=== PATIENT | female | born 1995 | race Caucasian/White ===

== ENCOUNTER 2016-12-05 06:00 | Inpatient (IN) | payer OTHER, MEDICAID ==
[~2016-12-05] VITALS: Ht 165.1 cm; Wt 108.4 kg
[2016-12-05] VITALS (31 sets, daily range): BP systolic 106–143; BP diastolic 53–87
[~2016-12-05 06:00] MED LIST: AMOX250S6 PO; CEPH500C PO; DEXAMETHASONE PO; FAMO10TA71 PO; HYDR-3812 PO; LORTAB ELIXIR PO; MECL12.579 PO; TETRACAINE LOLLIPOPS
[2016-12-05] MEDS ORDERED: D5 LR IV SOLUTION 1,000 ML IV SCH (06:21)
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
[2016-12-05] MEDS ORDERED: OXYTOCIN/NORMAL SALINE 500 ML IV ONE (06:47)
[2016-12-05 06:48] LABS: BASOPHILS % (AUTO) 0 % (0-10); EOSINOPHILS # (AUTO) 0.1 10^3/uL (0.0-0.3); EOSINOPHILS % (AUTO) 1 % (0-10); LYMPHOCYTES # (AUTO) 1.8 X 10^3 (1.0-4.0); LYMPHOCYTES % (AUTO) 24 % (12-44); MEAN CORPUSCULAR HEMOGLOBIN 28 PG (25-34); MEAN CORPUSCULAR HGB CONC 33 G/DL (32-36); MEAN CORPUSCULAR VOLUME 85 FL (80-99); MEAN PLATELET VOLUME 11.1 FL (7.4-10.4); MONOCYTES # (AUTO) 0.5 X 10^3 (0.0-1.0); MONOCYTES % (AUTO) 7 % (0-12); NEUTROPHILS % (AUTO) 67 % (42-75); PLATELET COUNT 210 10^3/uL (130-400); RED BLOOD COUNT 4.33 10^6/uL (4.35-5.85); RED CELL DISTRIBUTION WIDTH 13.7 % (10.0-14.5); WHITE BLOOD COUNT 7.4 10^3/uL (4.3-11.0)
--- NOTE | 2016-12-05 07:08 | History & Physical-OB ---
OB - Chief Complaint & HPI Date Date of Admission: Date of Admission: Dec 05, 2016 at 06:17 Chief Complaint/History OB-Reason for Admission/Chief: Induction of Labor Hx : 2 Hx Para: 1 Expected Date of Delivery: Dec 03, 2016 Admission Nurse Assessment Rev: Yes History of Labs GBS negative Allergies and Home Medications Allergies Coded Allergies: No Known Drug Allergies (Unverified , 09/12/13) Home Medications Hydrocodone/Acetaminophen 1 Each Tablet #20 1 TAB PO Q4H PRN PRN PAIN Prescribed by: LEONARDO HERRERA on 06/30/15 0744 OB - History Hx of Present Care: Yes Ultrasounds: Normal mid trimester US Obstetrical Complications: None Medical Complications: None Delivery History Hx Blood Disorders: No Adverse Rxn to Tranfusion: No Patient Past Medical History No chronic medical problems Social History/Family History Recent Infectious Disease Expo: No Immunizations Hepatitis A: Yes Tetanus Booster (TDap): Unknown OB - Admission Exam Physical Exam HEENT: Moist Membranes Heart: Rhythm Normal Lungs: Clear Abdomen: Gravid Extremities: Normal Reflexes: Normal Cervical Dilatation: 2cm Effacement: 50% Station: -2 Membranes: Intact Heart Rate: 140's Accelerations: Accelerations Present Short Term Variability: Present Assisted Variability: Average (6-25) Alvarez Scoring Tool (Modified) Dilation (cm): 1-2cm (1) Effacement (%): 31-51% (1) Descent/Station: -2 (1) Cervix Consistency: Medium(1) Cervix Position: Middle/Mid-Position (1) Add 1 point for: Each previous vaginal delivery (1) Alvarez Score: 6 Labs Laboratory Tests Test 12/05/16 06:30 Range/Units Basophils # (Auto) 0.0 0.0-0.1 10^3/uL Basophils (%) (Auto) 0 0-10 % Eosinophils # (Auto) 0.1 0.0-0.3 10^3/uL Eosinophils (%) (Auto) 1 0-10 % Hematocrit 37 35-52 % Hemoglobin 12.2 11.5-16.0 G/DL Lymphocytes # (Auto) 1.8 1.0-4.0 X 10^3 Lymphocytes (%) (Auto) 24 12-44 % Mean Corpuscular Hemoglobin 28 25-34 PG Mean Corpuscular Hemoglobin Concent 33 32-36 G/DL Mean Corpuscular Volume 85 80-99 FL Mean Platelet Volume 11.1 H 7.4-10.4 FL Monocytes # (Auto) 0.5 0.0-1.0 X 10^3 Monocytes (%) (Auto) 7 0-12 % Neutrophils # (Auto) 5.0 1.8-7.8 X 10^3 Neutrophils (%) (Auto) 67 42-75 % Platelet Count 210 130-400 10^3/uL Red Blood Count 4.33 L 4.35-5.85 10^6/uL Red Cell Distribution Width 13.7 10.0-14.5 % White Blood Count 7.4 4.3-11.0 10^3/uL OB - Assessment/Plan/Diagnosis Assessment Assessment: induction of labor (at 39w2d) Plan Plan: Induction Induction Method: AROM Other Plan No epidural desired at this time. Stadol for pain control. Pitocin augmentation if necessary LEONARDO HERRERA MD Dec 05, 2016 07:08
[2016-12-05] MEDS ORDERED: OXYTOCIN/NORMAL SALINE 500 ML IV SCH ×2 (07:26→12:56)
[2016-12-05] MEDS ORDERED: BUTORPHANOL INJ 2 MG/ML (STADOL) VIAL IV PRN (07:30)
[2016-12-05] MEDS ORDERED: MEPIVACAINE (CARBOCAINE) 2% 50 ML VIAL ONE (11:19)
--- NOTE | 2016-12-05 12:56 | OB Labor & Delivery Record ---
L&D History Date of Service Date of Service: Dec 05, 2016 History Expected Date of Delivery: Dec 10, 2016 Gestational Age in Weeks: 39 Hx : 2 Hx Para: 1 Complications Events: Routine care Operative Indications (Cesarea: N/A-Vaginal Delivery Intrapartal Events: None L&D Stage1 Stage One Onset of Labor - Date: Dec 05, 2016 Onset of Labor - Time: 07:11 Monitors and Tracing Monitor Mode: Internal Heart Rate: 135 Monitor Accelerations: Uniform Monitor Decelerations: Variable Automotive Service Professional Variability: Average (6-10) Short Term Variability: Present Presentation: Vertex Vital Signs VS - Last 72 Hours, by Label 12/05/16 12/05/16 12/05/16 12/05/16 06:44 07:15 07:30 07:45 Temp 98.9 Pulse 94 94 89 90 Resp 18 18 20 20 B/P 119/72 115/74 110/70 106/67 O2 Delivery Room Air Room Air Room Air Room Air 12/05/16 12/05/16 12/05/16 12/05/16 08:00 08:15 08:30 08:45 Pulse 90 83 85 87 Resp 20 20 20 20 B/P 118/56 116/65 106/56 113/70 O2 Delivery Room Air Room Air Room Air Room Air 12/05/16 12/05/16 12/05/16 12/05/16 09:00 09:15 09:30 09:45 Pulse 88 90 88 88 Resp 20 18 20 20 B/P 109/56 125/61 106/53 122/60 O2 Delivery Room Air Room Air Room Air Room Air 12/05/16 12/05/16 12/05/16 12/05/16 10:00 10:15 10:30 10:45 Pulse 92 94 80 76 Resp 20 20 18 18 B/P 121/56 133/70 118/60 114/59 O2 Delivery Room Air Room Air Room Air Room Air 12/05/16 12/05/16 11:00 11:15 Pulse 83 83 Resp 18 18 B/P 121/67 121/67 O2 Delivery Room Air Room Air Signs of Distress by FHT Signs of Distress no Rupture of Membranes Spontaneous Ruture of Membrane: No Amniotic Membrane Rupture Time: 0711 Amniotic Membrane Fluid Desc.: Clear L&D Stage2 Stage Two Stage II Date: Dec 05, 2016 Stage II Time: 12:31 Monitors and Tracing Monitor Mode: Internal Heart Rate: 135 Monitor Accelerations: Uniform Monitor Decelerations: Variable Usp Variability: Average (6-10) Short Term Variability: Present Position: Left Occiput Anterior Presentation: Vertex Signs of Distress by FHT Signs of Distress no Cord Descript/Complications Cord Vessel Description: 3 Vessels Delivery Type Delivery Method: Spontaneous Vaginal Anterior Shoulder: Left Episiotomy/Perineal Laceration Laceraction(s)/Extensions: Yes Episiotomy Description: Vaginal Extension/lac (L introital region) Sutures Used: Vicryl (3-0) Shoulder Dystocia Note Shoulder Dystocia Start Time of Delivery of HEAD: 12:31 HOB in lowered position: Yes Time of delivery of BODY: 12:33 Positional Maneuvers Vic Delivery Approach Delivery of posterior arm: Left Condition of Delivery 1 minute Comment: 6 5 minute Comment: 8 Condition of Infant Condition of Infant: Living Exam: No Observed Abnormalities Resuscitation Resuscitation: N/A - Spontaneous Resp L&D Stage3 Stage Three Stage III Date: Dec 05, 2016 Stage III Time: 12:34 Pictocin Pitocin Administration mu/min: 14 Pitocin ml/hr: 14 Placenta Delivery Placenta Delivery: Spontaneous Delivery Summary Summary Vaginal blood loss >500ml: No 300 Condition of Delivery Examined: Cervix Examined Post Hemorrhage: LEONARDO Brooks MD Dec 05, 2016 12:55
[2016-12-05] MEDS ORDERED: WITCH HAZEL(TUCKS) 40 EA JAR TOP PRN (13:00)
[2016-12-05] MEDS ORDERED: BENZOCAINE/MENTHOL (DERMOPLAST) 56 ML CAN TP PRN (13:00)
[2016-12-05] MEDS ORDERED: TETANUS,DIPTH,PERTUSS P/F (BOOSTRIX) 0.5 ML VIAL IM ONE (13:00)
[2016-12-05] MEDS ORDERED: HYDROcodone/APAP 5 MG/325 MG (LORTAB) TAB PO PRN (13:00)
[2016-12-05] MEDS ORDERED: MEASLES,MUMPS,RUBELLA 1 EA INJ SQ ONE (13:00)
[2016-12-05] MEDS ORDERED: CATHETER FLUSH 10 ML SYR IV SCH ×2 (14:00)
[2016-12-05] MEDS: IBUPROFEN 600 MG (MOTRIN) TAB PO SCH ×2 (14:52→20:36)
[2016-12-06 02:45] VITALS: BP 106/70
[2016-12-06] MEDS: IBUPROFEN 600 MG (MOTRIN) TAB PO SCH ×3 (02:49→16:00)
[2016-12-06 06:11] LABS: BASOPHILS % (AUTO) 0 % (0-10); EOSINOPHILS # (AUTO) 0.2 10^3/uL (0.0-0.3); EOSINOPHILS % (AUTO) 2 % (0-10); LYMPHOCYTES # (AUTO) 2.1 X 10^3 (1.0-4.0); LYMPHOCYTES % (AUTO) 21 % (12-44); MEAN CORPUSCULAR HEMOGLOBIN 28 PG (25-34); MEAN CORPUSCULAR HGB CONC 33 G/DL (32-36); MEAN CORPUSCULAR VOLUME 86 FL (80-99); MEAN PLATELET VOLUME 10.8 FL (7.4-10.4); MONOCYTES # (AUTO) 0.7 X 10^3 (0.0-1.0); MONOCYTES % (AUTO) 7 % (0-12); NEUTROPHILS # (AUTO) 7.1 X 10^3 (1.8-7.8); NEUTROPHILS % (AUTO) 71 % (42-75); PLATELET COUNT 201 10^3/uL (130-400); RED BLOOD COUNT 4.02 10^6/uL (4.35-5.85); RED CELL DISTRIBUTION WIDTH 13.7 % (10.0-14.5); WHITE BLOOD COUNT 10.1 10^3/uL (4.3-11.0)
[2016-12-06] MEDS ORDERED: PRENATAL VITAMIN 1 EA TAB PO SCH (07:00)
--- NOTE | 2016-12-06 07:34 | Discharge Summary ---
Diagnosis/Chief Complaint Date of Admission Dec 05, 2016 at 06:17 Date of Discharge Dec 06, 2016 Discharge Date: Dec 06, 2016 Admission Diagnosis Admission Diagnosis 1. IUP at 39w2d Discharge Diagnosis 1. IUP at 39w2d Reason Hospital Visit 21 yo G2 now T2 who initially presented for induction of labor at 39w3d in the am of 12/05/2016. EDC was noted to be 12/03/2016. Discharge Summary-OBS Procedures 1. 2. Repair of L sided vaginal introital opening repair Discharge Physical Examination Allergies: Coded Allergies: No Known Drug Allergies (Unverified , 09/12/13) Vitals & I&Os Vital Signs Date Time Temp Pulse Resp B/P Pulse Ox O2 Delivery O2 Flow Rate FiO2 12/06/16 02:45 98.3 79 18 106/70 97 Room Air Hospital Course Patient underwent amniotomy in the morning of December 05, 2016. Fluid was noted to be clear at that time. She required low-dose Pitocin augmentation to achieve adequate contraction pattern. She ultimately underwent spontaneous vaginal delivery with her left-sided vaginal introital opening care. This was repaired without difficulty. Blood loss was minimal. Her initial hemoglobin was noted to be 12.2. Following delivery patient underwent routine care orders. She had no complications during the remainder of her hospital stay. She was ambulatory. Patient did not develop any shortness of breath or leg pain. She was felt ready for dismissal on December 06, 2016. Her hemoglobin was stable at 11.3. All questions answered and she was given instructions for follow-up in 6 weeks. Pending Labs Laboratory Tests 12/06/16 06:01: Basophils # (Auto) 0.0, Basophils (%) (Auto) 0, Eosinophils # (Auto) 0.2, Eosinophils (%) (Auto) 2, Hematocrit 35, Hemoglobin 11.3, Lymphocytes # (Auto) 2.1, Lymphocytes (%) (Auto) 21, Mean Corpuscular Hemoglobin 28, Mean Corpuscular Hemoglobin Concent 33, Mean Corpuscular Volume 86, Mean Platelet Volume 10.8, Monocytes # (Auto) 0.7, Monocytes (%) (Auto) 7, Neutrophils # (Auto ) 7.1, Neutrophils (%) (Auto) 71, Platelet Count 201, Red Blood Count 4.02, Red Cell Distribution Width 13.7, White Blood Count 10.1 Discharge Instructions to patient/family Please see electonic discharge instructions given to patient. Discharge Medications Reviewed and agree with Discharge Medication list on patient's Discharge Instruction sheet Clinical Quality Measures DVT/VTE Risk/Contraindication: Risk Factor Score Per Nursin RFS Level Per Nursing on Admit: 1=Low/No VTE PPX LEONARDO HERRERA MD Dec 06, 2016 07:34
[2016-12-06] MEDS ORDERED: IBUP-1773 PO (07:43)
[2016-12-06] MEDS ORDERED: HYDR-3812 PO (07:43)
--- NOTE | 2016-12-06 07:45 | Discharge Inst-Women's Service ---
Discharge Inst-Women's Serv Depart Medication/Instructions New, Converted or Re-Newed RX: RX on Chart Consults/Follow Up Additional Follow Up: Yes ([address] Saucedo) Activity Driving Instructions: You May Drive Nothing Inside Vagina: No [place] (for 6 weeks) Diet Discharge Diet: No Restrictions Return to The Hospital For: as below Symptoms to Report to : Swelling Increased, Bleeding Excessive, Pain Increased, Fever Over 101 Degrees F, Vaginal Discharge LEONARDO Puga MD Dec 06, 2016 07:45
[2016-12-06 08:24] VITALS: BP 130/70
[2016-12-06] MEDS ORDERED: FLU TRIvalent (5 YOA+) 2016-17 (AFLURIA) 0.5 ML IM ONE (10:15)
[2016-12-06 12:15] VITALS: BP 126/74
[2016-12-06] MEDS ORDERED: TETANUS,DIPTH,PERTUSS P/F (BOOSTRIX) 0.5 ML VIAL IM ONE (15:42)
== END 2016-12-06 16:40 | disposition home or self-care (01) | DRG 775 ==
LOC: LDRP 06:17
PROVIDERS: ADMIT Family Medicine; ATTEND Family Medicine
PROC: 10E0XZZ Delivery of Products of Conception, External Approach (ICD-10-PCS; principal; 2016-12-05)
PROC: 0HQ9XZZ Repair Perineum Skin, External Approach (ICD-10-PCS; 2016-12-05)
DX: O70.0 First degree perineal laceration during delivery (principal); Z3A.39 39 weeks gestation of pregnancy; Z37.0 Single live birth; Z23 Encounter for immunization
CPT/HCPCS: 36415; 85025; 86850; 86900; 86901; 90715

== ENCOUNTER → 2017-01-16 | Outpatient (CLI) | payer OTHER, MEDICAID ==
[~2017-01-16] MED LIST changes: +IBUP-1773 PO
--- NOTE | 2017-01-16 13:51 | Diagnostic Imaging Report ---
INDICATION: Right-sided pain. FINDINGS: There is L5-S1 spondylosis with endplate sclerosis and disc space narrowing. In the lateral radiograph, there is suspicion for L5 spondylolysis defects but no listhesis. The vertebral body stature is normal. No acute or suspicious endplate irregularity. IMPRESSION: Normal alignment but suspicion for L5 spondylolysis is noted. This could be confirmed or refuted with oblique views. Normal alignment. Dictated by: Dictated on workstation # [id number]
== END ==
LOC: RAD 11:23
PROVIDERS: ATTEND Family Medicine
DX: M54.5 Low back pain (principal)
CPT/HCPCS: 72100

== ENCOUNTER 2017-03-07 10:15 | Outpatient (RCR) | payer MEDICAID, OTHER | END 2017-03-15 09:21 | disposition home or self-care (01) | PROVIDERS: ATTEND Family Medicine | DX: M54.5 Low back pain (principal) ==

== ENCOUNTER 2017-04-09 17:57 | Emergency (ER) | payer SELFPAY ==
[~2017-04-09] VITALS: Ht 165.1 cm; Wt 96.2 kg
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
[2017-04-09] MEDS ORDERED: ORPHENADRINE 60 MG/2 ML (NORFLEX) AMP IM ONE (19:30)
[2017-04-09] MEDS ORDERED: KETOROLAC 60 MG/2 ML VIAL IM ONE (19:30)
--- NOTE | 2017-04-09 19:45 | Diagnostic Imaging Report ---
PROCEDURE: CT head without contrast. TECHNIQUE: Multiple contiguous axial images were obtained through the brain without the use of intravenous contrast. INDICATION: Fluid leaking from nose. FINDINGS: The ventricles and sulci are within normal limits. There is no hydrocephalus or cerebral edema. There is no midline shift or mass effect. There is no intracranial mass, hemorrhage, or extra-axial fluid collection. The visualized paranasal sinuses and mastoid air cells are clear. There are no regional areas of decreased attenuation appreciated to suggest an acute CVA. IMPRESSION: No acute intracranial abnormality. Dictated by: Dictated on workstation # [id number]
[2017-04-09 20:19] VITALS: BP 125/84
== END 2017-04-09 20:19 | disposition home or self-care (01) ==
LOC: EDUNIT# 17:57 → ER 18:00
DX: R51 Headache (principal); K21.9 Gastro-esophageal reflux disease without esophagitis; F32.9 Major depressive disorder, single episode, unspecified; F17.210 Nicotine dependence, cigarettes, uncomplicated; Z82.49 Family history of ischemic heart disease and other diseases of the circulatory system
CPT/HCPCS: 70450; 96372; 99284

== ENCOUNTER → 2019-03-14 | Outpatient (CLI) | payer MEDICAID ==
[~2019-03-14] MED LIST changes: +ACHD5005 PO; -HYDR-3812 PO
--- NOTE | 2019-03-14 20:08 | Diagnostic Imaging Report ---
INDICATION: Pelvic pain. TECHNIQUE: Pelvic sonography performed in the routine fashion with transabdominal and transvaginal views. FINDINGS: The uterus measures 8.1 x 4.3 x 3.7 cm and appears unremarkable. The endometrium measures 6 mm. There is no uterine mass. The left ovary could not be visualized. The right ovary measures 3.5 x 3.5 x 2.2 cm and is only seen on the transabdominal view. There is no free fluid. There is color flow to the right ovary demonstrated. IMPRESSION: Normal-appearing uterus and right ovary. Left ovary was not visualized. There is no free fluid. Dictated by: Dictated on workstation # [id number]
== END ==
LOC: RAD 12:36
PROVIDERS: ATTEND Family Medicine
DX: N91.2 Amenorrhea, unspecified (principal); R10.2 Pelvic and perineal pain
CPT/HCPCS: 76830; 76856

== ENCOUNTER → 2019-06-12 | Outpatient (CLI) | payer MEDICAID ==
--- NOTE | 2019-06-12 15:53 | Diagnostic Imaging Report ---
PROCEDURE: US OB SINGLE FETUS <14 WKS. TECHNIQUE: Multiple real-time grayscale images were obtained over the gravid uterus in various projections. INDICATION: dates. FINDINGS: There is an intrauterine gestational sac containing a pole consistent with approximately 7 weeks and 3 days gestation. heart rate was recorded at 127 beats per minute. No perigestational sac hemorrhage is seen. Gestational sac shape is within normal limits. Left ovary was not visualized. Right ovary contains a 2.1 cm cyst. There is no free fluid identified. IMPRESSION: Single live IUP 7 weeks 3 days gestational age with estimated date of confinement sonographically of 01/26/2020. Dictated by: Dictated on workstation # [id number]
== END ==
LOC: RAD 14:56
PROVIDERS: ATTEND Family Medicine
DX: Z34.91 Encounter for supervision of normal pregnancy, unspecified, first trimester (principal); Z3A.01 Less than 8 weeks gestation of pregnancy
CPT/HCPCS: 76801

== ENCOUNTER → 2019-09-04 | Outpatient (CLI) | payer MEDICAID ==
--- NOTE | 2019-09-04 13:16 | Diagnostic Imaging Report ---
INDICATION: Anatomic survey. TECHNIQUE: Multiple real-time grayscale images were obtained over the gravid uterus. COMPARISON: 06/12/2019. FINDINGS: A single live intrauterine gestation is visualized measuring 20 weeks 3 days with an estimated due date of 01/19/2020. This is within range with the clinical dates. The estimated weight is 351 g, consistent with the 43rd percentile. The heart rate is 140 BPM. The amniotic fluid index was not measured; however visually this appears within normal limits. The placenta is fundal and not low lying. The bladder, stomach, ventricles, and spine are visualized and have a normal appearance. The kidneys, four-chamber heart, three-vessel cord, and cord insertion are not well seen due to position and patient body habitus. No obvious anatomic abnormalities are visualized. Included views of the adnexa demonstrate no acute abnormalities. Biometrical measurements are as follows: Biparietal 4.73 cm, age 20 weeks 3 days. Head circumference 17.72 cm, age 20 weeks 2 days. Abdominal circumference 15.32 cm, age 20 weeks 4 days. Femur length 3.29 cm, age 20 weeks 2 days. Sonographic estimate age: 20 weeks 3 days. Sonographic estimated date of delivery: 01/19/2020. Estimated Weight: 351 gm (+/- 51 gm). LMP percentile: 92%. heart rate: 140 beats per minute. number: 1 of 1. IMPRESSION: 1. Single live intrauterine gestation measuring 20 weeks 3 days with an estimated due date of 01/19/2020. This is within range with the clinical dates. 2. The kidneys, four-chamber heart, three-vessel cord, and cord insertion are not well seen due to position and patient body habitus. Consider follow-up ultrasound as indicated to attempt reevaluation. The bladder, stomach, ventricles, and spine are visualized and have a normal appearance. No obvious abnormalities are identified. Dictated by: Dictated on workstation # [id number]
== END ==
LOC: RAD 10:33
PROVIDERS: ATTEND Family Medicine
DX: Z34.92 Encounter for supervision of normal pregnancy, unspecified, second trimester (principal); Z3A.20 20 weeks gestation of pregnancy
CPT/HCPCS: 76805

== ENCOUNTER → 2019-10-30 | Outpatient (CLI) | payer MEDICAID ==
--- NOTE | 2019-10-30 14:54 | Diagnostic Imaging Report ---
INDICATION: Follow-up survey. TECHNIQUE: Multiple real-time grayscale images were obtained over the gravid uterus. COMPARISON: 09/04/2019. FINDINGS: There is a single live fetus in a cephalic presentation. heart rate was recorded at 149 bpm. Placenta is anterior. The amniotic fluid index is 17.5 cm. There appears to be some mild dilatation of the renal pelves bilaterally, measuring up to 9 mm on the right and 7 mm on the left. Bladder and stomach are unremarkable. There is a four-chamber heart. There is a three-vessel cord with normal insertion. IMPRESSION: Single live fetus. There is renal pelvic dilatation bilaterally, slightly greater on the right. Continued follow-up would be recommended. Dictated by: Dictated on workstation # [id number]
== END ==
LOC: RAD 10:34
PROVIDERS: ATTEND Family Medicine
DX: Z36.9 Encounter for antenatal screening, unspecified (principal)
CPT/HCPCS: 76816

== ENCOUNTER 2020-01-13 05:04 | Inpatient (IN) | payer MEDICAID ==
[~2020-01-13] VITALS: Ht 165.1 cm; Wt 113.0 kg
[2020-01-13] VITALS (15 sets, daily range): BP systolic 112–135; BP diastolic 57–82
--- NOTE | 2020-01-13 05:07 | NUR ---
MEKHI CARPENTER presented to unit via W/C from home/ED, accompanied by SO, with c/o LABOR. MEKHI CARPENTER weighed, gowned, voided, and to bed. EFHM and TOCO applied, VS taken. MEKHI CARPENTER oriented to bed controls, call light, TV, heat, and A/C controls.
[2020-01-13] MEDS ORDERED: D5 LR IV SOLUTION 1,000 ML IV ONE (05:10)
[2020-01-13] MEDS ORDERED: LORA10TA7 PO (05:11)
[2020-01-13] MEDS ORDERED: PROM25TA14 PO (05:11)
[2020-01-13] MEDS ORDERED: HYDR-700 PO (05:11)
[2020-01-13] MEDS ORDERED: AMPICILLIN FOR IV USE 2,000 MG VIAL ONE (05:17)
[2020-01-13] MEDS ORDERED: WATER (STERILE) FOR INJECTION 20 ML ONE (05:17)
[2020-01-13] MEDS ORDERED: D5 LR IV SOLUTION 1,000 ML IV SCH (05:21)
[2020-01-13] MEDS ORDERED: AMPICILLIN FOR IV USE 2,000 MG in WATER (STERILE) FOR INJECTION 14.8 ML IV SCH (05:21)
[2020-01-13] MEDS ORDERED: OXYTOCIN PRE-MIX DRIP 500 ML IV ONE (05:28)
[2020-01-13] MEDS ORDERED: MEPIVACAINE (CARBOCAINE) 2% 50 ML VIAL ONE (05:28)
[2020-01-13 05:40] LABS: BASOPHILS % (AUTO) 0 % (0-10); EOSINOPHILS # (AUTO) 0.1 10^3/uL (0.0-0.3); EOSINOPHILS % (AUTO) 1 % (0-10); HEMATOCRIT 37 % (35-52); HEMOGLOBIN 12.2 G/DL (11.5-16.0); LYMPHOCYTES # (AUTO) 1.6 X 10^3 (1.0-4.0); LYMPHOCYTES % (AUTO) 17 % (12-44); MEAN CORPUSCULAR HEMOGLOBIN 29 PG (25-34); MEAN CORPUSCULAR HGB CONC 33 G/DL (32-36); MEAN CORPUSCULAR VOLUME 88 FL (80-99); MEAN PLATELET VOLUME 11.8 FL (7.4-10.4); MONOCYTES # (AUTO) 0.5 X 10^3 (0.0-1.0); MONOCYTES % (AUTO) 5 % (0-12); NEUTROPHILS # (AUTO) 7.3 X 10^3 (1.8-7.8); NEUTROPHILS % (AUTO) 77 % (42-75); PLATELET COUNT 210 10^3/uL (130-400); RED CELL DISTRIBUTION WIDTH 13.4 % (10.0-14.5); WHITE BLOOD COUNT 9.5 10^3/uL (4.3-11.0)
[2020-01-13] MEDS ORDERED: CATHETER FLUSH 10 ML SYR IV SCH ×2 (06:00→14:00)
--- NOTE | 2020-01-13 06:00 | NUR ---
bed placed back together. pericare completed. ff 1 below umbilicus, light rubra noted.
--- NOTE | 2020-01-13 06:12 | History & Physical-OB ---
OB - Chief Complaint & HPI Date/Time Date of Admission: Date of Admission: Jan 13, 2020 at 05:11 Date seen by a Provider: Jan 13, 2020 Time Seen by a Provider: 05:10 Chief Complaint/History OB-Reason for Admission/Chief: Onset of Labor Hx : 3 Hx Para: 2 Expected Date of Delivery: Jan 26, 2020 Gestational Age in Weeks: 38 Gestational Age in Days: 1 Admission Nurse Assessment Rev: Yes History of Labs GBS positive Allergies and Home Medications Allergies Coded Allergies: No Known Drug Allergies (Unverified , 09/12/13) Home Medications Promethazine HCl 25 Mg Tablet, 25 MG PO Q6H PRN for NAUSEA/VOMITING, (Reported) Patient Home Medication List Home Medication List Reviewed: Yes OB - History Hx of Present Care: Yes Ultrasounds: Normal mid trimester US Obstetrical Complications: None Medical Complications: None Delivery History Hx Blood Disorders: No Adverse Rxn to Tranfusion: No Patient Past Medical History No chronic medical problems Social History/Family History Recent Infectious Disease Expo: No Alcohol Use: Denies Use Recreational Drug Use: No Immunizations Hepatitis A: No Hepatitis B: No Tetanus Booster (TDap): Unknown OB - Admission Exam Physical Exam HEENT: Moist Membranes Heart: Rhythm Normal Lungs: Clear Abdomen: Gravid Extremities: Normal Cervical Dilatation: 8cm Effacement: 100% Station: -1 Membranes: Intact Heart Rate: 140's Accelerations: Accelerations Present Short Term Variability: Present Longterm Variability: Average (6-25) Contractions on Admission: < 5 Minutes Apart Intensity: Moderate Labs Laboratory Tests Test 01/13/20 05:30 Range/Units OB - Assessment/Plan/Diagnosis Assessment Assessment: active labor, group B positive strep Admission Dx 1. IUP at 38w1d Admission Status: Inpatient Order (span 2 midnights) Reason for Inpatient Admission: L&D Plan Plan: Other (delivery vaginally) Other Plan -ampicillin dose -delivery vaginally LEONARDO HERRERA MD Jan 13, 2020 06:12
[2020-01-13] MEDS ORDERED: OXYTOCIN PRE-MIX DRIP 500 ML IV SCH (06:15)
[2020-01-13] MEDS ORDERED: BENZOCAINE/MENTHOL (DERMOPLAST) 60 ML CAN TP PRN (06:15)
[2020-01-13] MEDS ORDERED: TETANUS,DIPTH,PERTUSS P/F (BOOSTRIX) 0.5 ML VIAL IM ONE (06:15)
[2020-01-13] MEDS ORDERED: WITCH HAZEL(TUCKS) 40 EA JAR TOP PRN (06:15)
[2020-01-13] MEDS ORDERED: MEASLES,MUMPS,RUBELLA 1 EA INJ SQ ONE (06:15)
--- NOTE | 2020-01-13 06:15 | NUR ---
ff 1 below umbilicus, light rubra noted.
--- NOTE | 2020-01-13 06:15 | OB Labor & Delivery Record ---
L&D History Date of Service Date of Service: Jan 13, 2020 History Expected Date of Delivery: Jan 26, 2020 Gestational Age in Weeks: 38 Hx : 3 Hx Para: 3 Complications Events: Routine care Operative Indications (Cesarea: N/A-Vaginal Delivery Intrapartal Events: None L&D Stage1 Stage One Onset of Labor - Date: Jan 12, 2020 Onset of Labor - Time: 22:00 Monitors and Tracing Monitor Mode: External Monitor Accelerations: Uniform Monitor Decelerations: None Station: -1 Nursing Home Variability: Average (6-10) Short Term Variability: Present Presentation: Vertex Signs of Distress by FHT Signs of Distress no Rupture of Membranes Spontaneous Ruture of Membrane: Yes Amniotic Membrane Rupture Time: 05:44 Amniotic Membrane Fluid Desc.: Clear L&D Stage2 Stage Two Stage II Date: Jan 13, 2020 Stage II Time: 05:46 Monitors and Tracing Monitor Mode: External Monitor Accelerations: Uniform Monitor Decelerations: Early Math Tutor Variability: Average (6-10) Short Term Variability: Present Position: Left Occiput Anterior Presentation: Vertex Signs of Distress by FHT Signs of Distress no Cord Descript/Complications Cord Vessel Description: 3 Vessels Delivery Type Infant Delivery Method: Spontaneous Vaginal Anterior Shoulder: Left Episiotomy/Perineal Laceration Laceraction(s)/Extensions: No Condition of Delivery 1 minute Comment: 9 5 minute Comment: 9 Condition of Condition of : Living Exam: No Observed Abnormalities Resuscitation Resuscitation: N/A - Spontaneous Resp L&D Stage3 Stage Three Stage III Date: Jan 13, 2020 Stage III Time: 05:50 Pictocin Pitocin ml/hr: 125 Placenta Delivery Placenta Delivery: Spontaneous Delivery Summary Summary Estimated blood loss (mL): 250 Condition of Delivery Examined: Cervix Examined Post Hemorrhage: No Intervention Required none LEONARDO HERRERA MD Jan 13, 2020 06:15
--- NOTE | 2020-01-13 06:30 | NUR ---
ff 1 below umbilicus. light rubra noted. holding baby. water provided. s/o at bedside. denies any needs at this time.
--- NOTE | 2020-01-13 06:45 | NUR ---
ff 1 below umbilicus. light rubra noted
[2020-01-13] MEDS ORDERED: IBUPROFEN 600 MG (MOTRIN) TAB PO ONE (07:40)
[2020-01-13] MEDS: IBUPROFEN 600 MG (MOTRIN) TAB PO SCH ×3 (08:20→20:30)
--- NOTE | 2020-01-13 08:30 | NUR ---
FFU/2, light rubra lochia noted, no clots expressed. Pericare performed, fresh pad and panties on. Pt assisted to standing position at side of bed, assisted to put shoes on. Pt ambulates to room 312 accompanied by RN, S.o., infant and all personal belongings. Pt oriented to room and call light. packet explained. Pt to bathroom +void. Pt denies needs or concerns at this time.
[2020-01-13] MEDS ORDERED: AMPICILLIN FOR IV USE 1,000 MG in WATER (STERILE) FOR INJECTION 7.4 ML IV SCH (09:30)
[2020-01-13] MEDS: ACETAMINOPHEN 500 MG TAB (TYLENOL) PO SCH ×2 (11:43→20:30)
--- NOTE | 2020-01-13 15:07 | NUR ---
report received from KATHY Mcneil. care assumed of pt.
--- NOTE | 2020-01-13 17:00 | NUR ---
infant remains out in room. no c/o's voiced @ time.
--- NOTE | 2020-01-13 19:05 | NUR ---
report given to KATHY Awad.
[2020-01-13] MEDS: DOCUSATE SODIUM 100 MG (COLACE) CAP PO SCH (20:30)
--- NOTE | 2020-01-13 21:09 | NUR ---
pt resting in bed. family at bedside. pt denies any needs at this time. will continue to monitor
[2020-01-14] MEDS: IBUPROFEN 600 MG (MOTRIN) TAB PO SCH ×2 (02:00→09:09)
[2020-01-14] MEDS: ACETAMINOPHEN 500 MG TAB (TYLENOL) PO SCH ×2 (02:00→09:10)
[2020-01-14 03:37] VITALS: BP 107/71
[2020-01-14 05:32] LABS: BASOPHILS % (AUTO) 0 % (0-10); EOSINOPHILS # (AUTO) 0.2 10^3/uL (0.0-0.3); EOSINOPHILS % (AUTO) 3 % (0-10); HEMATOCRIT 30 % (35-52); HEMOGLOBIN 9.7 G/DL (11.5-16.0); LYMPHOCYTES # (AUTO) 2.5 X 10^3 (1.0-4.0); LYMPHOCYTES % (AUTO) 33 % (12-44); MEAN CORPUSCULAR HEMOGLOBIN 29 PG (25-34); MEAN CORPUSCULAR HGB CONC 32 G/DL (32-36); MEAN CORPUSCULAR VOLUME 90 FL (80-99); MEAN PLATELET VOLUME 11.1 FL (7.4-10.4); MONOCYTES # (AUTO) 0.5 X 10^3 (0.0-1.0); MONOCYTES % (AUTO) 7 % (0-12); NEUTROPHILS # (AUTO) 4.2 X 10^3 (1.8-7.8); NEUTROPHILS % (AUTO) 57 % (42-75); PLATELET COUNT 162 10^3/uL (130-400); RED CELL DISTRIBUTION WIDTH 13.8 % (10.0-14.5); WHITE BLOOD COUNT 7.4 10^3/uL (4.3-11.0)
--- NOTE | 2020-01-14 07:14 | Discharge Summary ---
Diagnosis/Chief Complaint Date of Admission Jan 13, 2020 at 05:11 Date of Discharge January 14, 2020 Discharge Date: Jan 14, 2020 Discharge Time: 09:00 Admission Diagnosis Admission Diagnosis 1. Intrauterine at 38 weeks gestation 2. Maternal GBS positive Discharge Diagnosis 1. Intrauterine at 38 weeks gestation 2. Maternal GBS positive Reason Hospital Visit 24-year-old 3 now term 3 who initially presented to labor and delivery during the roper operator of January 13, 2020 in active labor. She was noted to be at 38 weeks gestation with essentially unremarkable care. Her EDC was noted to be January 26, 2020. GBS status at 36 weeks vaginal and perineal culture was positive Discharge Summary-OBS Procedures 1. Spontaneous vaginal delivery Discharge Physical Examination Allergies: Coded Allergies: No Known Drug Allergies (Unverified , 09/12/13) Vitals & I&Os Vital Signs Date Time Temp Pulse Resp B/P (MAP) Pulse Ox O2 Delivery O2 Flow Rate FiO2 01/14/20 03:37 36.8 79 18 107/71 (83) 98 Room Air General Appearance: No Acute Distress Respiratory: Clear to Auscultation Cardiovascular: Regular Rate Abdominal: Normal Bowel Sounds, Soft (With uterus firm) Skin: No Rashes Hospital Course Was the Problem List Reviewed?: Yes Patient was admitted during the morning of January 13, 2020 in active labor. She presented 7-8 cm dilated. Her membranes were intact at that time. She had received one dose of ampicillin IV due to the GBS status. Upon arrival to Hospital she was dilated to completion. Membranes were noted be intact but with her first push membranes spontaneously ruptured. She delivered a term large for gestational age viable male in the morning of January 13, 2020. There was no perineal lacerations her care. See labor and delivery for full details. Following delivery patient underwent routine care orders. She had no complications during the remainder of hospital stay. She was noted to be ambulatory without any shortness of breath or leg pain. She tolerated regular diet. Her hemoglobin in the morning of January 13 was 9.7 compared to 12.2 on admission. She was asymptomatic wrist regard to any lightheadedness or dizziness. She was felt ready for dismissal during the late morning of January 14, 2020. She will follow up in my clinic in 6 weeks. Pending Labs Laboratory Tests 01/14/20 05:04: White Blood Count 7.4, Red Blood Count 3.33, Hemoglobin 9.7, Hematocrit 30, Mean Corpuscular Volume 90, Mean Corpuscular Hemoglobin 29, Mean Corpuscular Hemoglobin Concent 32, Red Cell Distribution Width 13.8, Platelet Count 162, Mean Platelet Volume 11.1, Neutrophils (%) (Auto) 57, Lymphocytes (%) (Auto) 33, Monocytes (%) (Auto) 7, Eosinophils (%) (Auto) 3, Basophils (%) (Auto) 0, Neutrophils # (Auto) 4.2, Lymphocytes # (Auto) 2.5, Monocytes # (Auto) 0.5, Eosinophils # (Auto) 0.2, Basophils # (Auto) 0.0 Discharge Instructions to patient/family Please see electronic discharge instructions given to patient. Discharge Medications Reviewed and agree with Discharge Medication list on patient's Discharge Instruction sheet Clinical Quality Measures DVT/VTE Risk/Contraindication: Risk Factor Score Per Nursin RFS Level Per Nursing on Admit: 2=Moderate LEONARDO HERRERA MD Jan 14, 2020 07:14
--- NOTE | 2020-01-14 07:16 | Discharge Inst-Women's Service ---
Discharge Inst-Women's Serv Depart Medication/Instructions New, Converted or Re-Newed RX: Other Instructions For uterine cramping ibuprofen 200 mg tablets take 2 or 3 every 6 hours as needed for cramps. Problems Reviewed?: Yes Consults/Follow Up Additional Follow Up: Yes (With Dr. Herrera in 6 weeks.) Activity Activity: Activity as Tolerated Driving Instructions: No Driving for 1 Week Nothing Inside Vagina: No [place] (For 6 weeks) Diet Discharge Diet: Regular Diet Return to The Hospital For: As below Symptoms to Report to : Bleeding Excessive, Pain Increased, Fever Over 101 Degrees F, Vaginal Discharge Foul For Any Problems or Questions: Contact Your Physician LEONARDO HERRERA MD Jan 14, 2020 07:16
[2020-01-14] MEDS: DOCUSATE SODIUM 100 MG (COLACE) CAP PO SCH (09:09)
[2020-01-14 09:12] VITALS: BP 120/71
--- NOTE | 2020-01-14 09:12 | NUR ---
initial shift assessment completed, see interventions for further.
--- NOTE | 2020-01-14 13:24 | NUR ---
dismissal instructions given, verbalizes understanding. reviewed dismissal Rx's. instructed pt to schedule follow up appointment. signature page signed, placed in chart.
--- NOTE | 2020-01-14 14:40 | NUR ---
pt dismissed to private vehicle via w/c with in arms. secured in rear facing car seat upon arrival to vehicle by FOB. pt stable with no sx's of distress noted.
== END 2020-01-14 14:40 | disposition home or self-care (01) | DRG 807 ==
LOC: WSo 05:04 → LDRP 05:07 → WSo 05:10 → LDRP 05:11
PROVIDERS: ADMIT Family Medicine; ATTEND Family Medicine
PROC: 10E0XZZ Delivery of Products of Conception, External Approach (ICD-10-PCS; principal; 2020-01-13)
DX: O99.824 Streptococcus B carrier state complicating childbirth (principal); O36.63X0 Maternal care for excessive fetal growth, third trimester, not applicable or unspecified; Z37.0 Single live birth; Z3A.38 38 weeks gestation of pregnancy
CPT/HCPCS: 36415; 85025; 86850; 86900; 86901; 99212

== ENCOUNTER 2021-08-15 05:33 | Outpatient (CLI) | payer MEDICAID ==
[~2021-08-15] VITALS: Ht 165.1 cm; Wt 122.0 kg
[~2021-08-15 05:33] MED LIST changes: +HYDR-700 PO; +LORA10TA7 PO; +PROM25TA14 PO
[2021-08-15] MEDS ORDERED: ESCI20TA39 PO (13:42)
[2021-08-15] MEDS ORDERED: NORG1TAB15 PO (13:42)
== END 2021-08-15 14:04 | disposition home or self-care (01) ==
LOC: PREOP 05:33
PROVIDERS: ATTEND Surgery
DX: Z01.818 Encounter for other preprocedural examination (principal)

== ENCOUNTER 2021-08-19 07:44 | Day surgery (SDC) | payer MEDICAID ==
[2021-08-19] VITALS (11 sets, daily range): BP systolic 126–156; BP diastolic 76–91
[~2021-08-19] VITALS: Ht 165.1 cm; Wt 122.0 kg
[~2021-08-19 07:44] MED LIST changes: +ESCI20TA39 PO; +NORG1TAB15 PO
[2021-08-19] MEDS ORDERED: LACTATED RINGERS 1,000 ML IV PRN (08:00)
[2021-08-19] MEDS ORDERED: ceFAZolin 2 GM IV Premixed 50 ML IV ONE (08:00)
[2021-08-19] MEDS ORDERED: LIDOCAINE/EPI 1%-1:100,000 (XYLOCAINE) 20ML ONE (09:40)
--- NOTE | 2021-08-19 10:05 | Progress Note-Pre Operative ---
Pre-Operative Progress Note H&P Reviewed The H&P was reviewed, patient examined and no changes noted. Time Seen by Provider: 10:02 Date H&P Reviewed: Aug 19, 2021 Time H&P Reviewed: 10:02 Pre-Operative Diagnosis: Left foot mass, site marked SANDRA HENDERSON DO Aug 19, 2021 10:05
[2021-08-19] MEDS ORDERED: MIDAZOLAM 2 MG/2 ML (VERSED) VIAL ONE (10:12)
[2021-08-19] MEDS ORDERED: fentaNYL INJ 100 MCG/2 ML AMP ONE (10:12)
[2021-08-19] MEDS ORDERED: PROPOFOL INJECTION 50 ML IV ONE (10:20)
[2021-08-19] MEDS ORDERED: LIDOCAINE PF 2% 5 ML (XYLOCAINE) VIAL ONE (10:20)
--- NOTE | 2021-08-19 10:45 | Progress Note-Post Operative ---
Post-Operative Progess Note Surgeon (s)/Electrical And Radio Mock Up Mechanic (s) Surgeon SANDRA HENDERSON DO Electrical And Radio Mock Up Mechanic: ELSY Monterroso Pre-Operative Diagnosis Left foot mass, site marked Post-Operative Diagnosis same pending path Procedure & Operative Findings Date of Procedure 08/19/21 Procedure Performed/Findings Exc left foot mass Anesthesia Type LMA Estimated Blood Loss Estimated blood loss (mL): scant Specimens/Packing Specimens Removed left foot mass SANDRA HENDERSON DO Aug 19, 2021 10:45
[2021-08-19] MEDS ORDERED: ACHD5005 PO (10:46)
[2021-08-19] MEDS ORDERED: SEVOFLURANE (ULTANE) 15 ML INHAL SOLN ONE (10:46)
[2021-08-19] MEDS ORDERED: ONDANSETRON 4 MG/2 ML (SDV) Z0FRAN ONE (10:47)
--- NOTE | 2021-08-19 10:47 | Discharge Inst-Surgical ---
Discharge Inst-Surgical Depart Medication/Instructions New, Converted or Re-Newed RX: Transmitted to Pharmacy Patient Instructions Follow up Appt: Make appointment for 1 week. [phone] Instructions: No lifting greater than 20 pounds. No strenuous activity. May shower in 24 hours, no tub bath or soaking. Use incentive spirometer at home as directed. No Smoking Skin/Wound Care: May remove bandages in am. You need to repack and rewrap the foot daily. Symptoms to Report: Appetite Changes, Extremity Discoloration, Numbness/Tingling, Swelling Increased, Bleeding Excessive, Eyesight Changes, Pain Increased, Urine Color Change, Constipation(Persistent), Fever over 101 degree F, Pain/Pressure in chest, Urinating Difficulty, Cough Up/Vomit Blood, Heart Beat Irreg/Pounding, Pain/Pressure in jaw, Cramps in feet or legs, Lightheadedness, Pain/Pressure in shoulder, Diarrhea(Persistent), Memory Changes Suddenly, Questions/Concerns, Weight gain consecutive days, Dizziness/Fainting, Nausea/Vomiting, Shortness of Breath, Weight gain over 2 pounds If questions or concerns contact your physician Or seek help at emergency department. Activity Activity as Tolerated: Yes Driving Instructions: No Driving/Refer to Dr. Saleem Discharge Diet: No Restrictions Diet After 24 Hours: Clear Liquid if Nauseous If Any Problems/Questions/Issu: Contact Your Physician, Go to Emergency Room Skin/Wound Care Infection Signs and Symptoms: Increased Redness, Foul Odor of Wound, Increased Drainage, Skin Itchy or Has a Rash, Increased Swelling, Temperature Above 101 F Bathing Instructions: SANDRA Rhoades DO Aug 19, 2021 10:47
--- NOTE | 2021-08-19 14:25 | Anesthesia-General Post-Op ---
General Patient Condition Mental Status/LOC: Same as Preop Cardiovascular: Satisfactory Nausea/Vomiting: Absent Respiratory: Satisfactory Pain: Controlled Complications: Absent Post Op Complications Complications None Follow Up Care/Instructions Patient Instructions None needed. Anesthesia/Patient Condition Patient Condition Patient is doing well, no complaints, stable vital signs, no apparent adverse anesthesia problems. No complications reported per nursing. CISCO BROWN CRNA Aug 19, 2021 14:25
--- NOTE | 2021-08-20 02:15 | OPERATIVE REPORT ---
DATE OF SERVICE: 08/19/2021 PREOPERATIVE DIAGNOSIS: Left foot mass. POSTOPERATIVE DIAGNOSIS: Left foot mass, pending pathology. PROCEDURE: Excision of left foot mass. SURGEON: Jordan Borges DO SIDE BOSS: Preet Shelley MS3. ANESTHESIA: LMA. SPECIMEN: Left foot mass. BLOOD LOSS: Scant. FLUIDS: Per anesthesia. POSTOPERATIVE CONDITION: Stable. INDICATION FOR PROCEDURE: The patient is a 25-year-old female who has a mass in her left foot, most likely plantar warts, wanted to get this removed. FINDINGS: The patient had this mass removed just over a centimeter in diameter. It was cored out and sent to pathology. PROCEDURE NOTE: After informed consent was obtained, the patient was brought to the operating room, placed on the table in supine position. She was sterilely prepped and draped in normal fashion, then used local lidocaine to perform a foot block across the dorsal aspect down in front of the medial and lateral malleoli and then injected around the mass on the left foot. This was most likely a plantar wart. Elected to do a circular incision on the firm aspect of this with a #15 blade, carried down through the skin into the subcutaneous tissue, then deepened down to subcutaneous tissue with sharp dissection with a #15 blade down to the dermis just on top, removing this en bloc, passing this off table. At this point, copiously irrigated with normal saline. Hemostasis was obtained using Bovie electrocautery, then elected to just pack this incision with quarter inch iodoform packing, then fluffs and then Kerlix and Coban dressing. The patient tolerated the procedure. Sponge, instrument and needle count correct at the end of the case. Job ID: [id number] DocumentID: [id number] Dictated Date: 08/19/2021 17:01:13 Armament Aircraft Mechanic Date: 08/20/2021 02:14:54 Dictated By: JORDAN BORGES DO [facility]
== END 2021-08-19 12:45 | disposition home or self-care (01) ==
LOC: SDC 07:44
PROVIDERS: ATTEND Surgery
DX: R22.42 Localized swelling, mass and lump, left lower limb (principal)
CPT/HCPCS: 84703; 87081; 88305; 88344

== ENCOUNTER 2021-09-07 06:39 | Outpatient (CLI) | payer MEDICAID ==
[~2021-09-07] VITALS: Ht 165.1 cm; Wt 122.0 kg
== END 2021-09-07 13:32 | disposition home or self-care (01) ==
LOC: PREOP 06:39
PROVIDERS: ATTEND Surgery
DX: Z01.818 Encounter for other preprocedural examination (principal)

== ENCOUNTER 2021-09-12 10:45 | Day surgery (SDC) | payer MEDICAID ==
[~2021-09-12] VITALS: Ht 165.1 cm; Wt 122.0 kg
[2021-09-12] VITALS (11 sets, daily range): BP systolic 108–151; BP diastolic 68–90
[2021-09-12] MEDS ORDERED: ceFAZolin 2 GM IV Premixed 50 ML IV ONE ×2 (11:00→12:00)
[2021-09-12] MEDS ORDERED: LACTATED RINGERS 1,000 ML IV PRN (11:00)
--- NOTE | 2021-09-12 13:02 | Diagnostic Imaging Report ---
INDICATION: Left foot malignant tumor. FINDINGS: A total of 1.1 mCi of filtered sulfur colloid was injected in 4 separate aliquots surrounding the lesion along the plantar aspect of the left foot. Imaging was then performed. There was migration of activity into the left groin. This was marked on the patient's skin. IMPRESSION: Left foot lymphoscintigraphy for identification of a sentinel node. Dictated by: Dictated on workstation # [id number]
[2021-09-12] MEDS ORDERED: METHYLENE BLUE 0.5% (PROVAYBLUE) 50 mg/10 ml vial IV ONE (13:43)
[2021-09-12] MEDS ORDERED: LIDOCAINE/EPI 1%-1:100,000 (XYLOCAINE) 20ML ONE (13:43)
--- NOTE | 2021-09-12 13:52 | Progress Note-Pre Operative ---
Pre-Operative Progress Note H&P Reviewed The H&P was reviewed, patient examined and no changes noted. Time Seen by Provider: 13:46 Date H&P Reviewed: Sep 12, 2021 Time H&P Reviewed: 13:46 Pre-Operative Diagnosis: Malignancy of left foot, site marked SANDRA HENDERSON DO Sep 12, 2021 13:52
[2021-09-12] MEDS ORDERED: proPOfol 200 MG/20 ML (DIPRIVAN) VIAL IV ONE ×2 (14:31→15:33)
[2021-09-12] MEDS ORDERED: LIDOCAINE PF 2% 5 ML (XYLOCAINE) VIAL ONE (14:31)
[2021-09-12] MEDS ORDERED: fentaNYL INJ 100 MCG/2 ML AMP ONE (14:32)
[2021-09-12] MEDS ORDERED: MIDAZOLAM 2 MG/2 ML (VERSED) VIAL ONE (14:32)
[2021-09-12] MEDS ORDERED: KETAMINE SYRINGE 50 MG/5 ML SYRINGE ONE (15:36)
[2021-09-12] MEDS ORDERED: KETAMINE HCL 100 MG/ML 5 ML VIAL ONE (15:36)
[2021-09-12] MEDS ORDERED: ONDANSETRON 4 MG/2 ML (SDV) Z0FRAN ONE (16:14)
[2021-09-12] MEDS ORDERED: SEVOFLURANE (ULTANE) 15 ML INHAL SOLN ONE (16:15)
--- NOTE | 2021-09-12 16:16 | Progress Note-Post Operative ---
Post-Operative Progess Note Surgeon (s)/Sanforizing Machine Operator (s) Surgeon SANDRA HENDERSON DO Sanforizing Machine Operator: CATE Hernandez Pre-Operative Diagnosis Malignancy of left foot, site marked Post-Operative Diagnosis Same pending path Procedure & Operative Findings Date of Procedure 09/12/21 Procedure Performed/Findings 1) Wide local excision of left foot 2) [place] lymph node bx, Inguinal 3) Injection of methylene blue Anesthesia Type LMA Estimated Blood Loss Estimated blood loss (mL): less than 10ml Specimens/Packing Specimens Removed wide excision left foot sentinel lymph node left inguinal x 3 Packing: Skin 734 In vivo 1224 Ex vivo 2127, [id number], 3494 SANDRA HENDERSON DO Sep 12, 2021 16:16
[2021-09-12] MEDS ORDERED: ACHD5005 PO (16:17)
--- NOTE | 2021-09-12 16:18 | Discharge Inst-Surgical ---
Discharge Inst-Surgical Depart Medication/Instructions New, Converted or Re-Newed RX: Transmitted to Pharmacy Patient Instructions Follow up Appt: Make appointment for 1 week. [phone] Instructions: No lifting greater than 20 pounds. No strenuous activity. May shower in 24 hours, no tub bath or soaking. Use incentive spirometer at home as directed. No Smoking Skin/Wound Care: May remove bandages in am. You need to leave the Dermabond on incision it will fall off on it's own. Pack foot daily with iodophor. Symptoms to Report: Appetite Changes, Extremity Discoloration, Numbness/Tingling, Swelling Increased, Bleeding Excessive, Eyesight Changes, Pain Increased, Urine Color Change, Constipation(Persistent), Fever over 101 degree F, Pain/Pressure in chest, Urinating Difficulty, Cough Up/Vomit Blood, Heart Beat Irreg/Pounding, Pain/Pressure in jaw, Cramps in feet or legs, Lightheadedness, Pain/Pressure in shoulder, Diarrhea(Persistent), Memory Changes Suddenly, Questions/Concerns, Weight gain consecutive days, Dizziness/Fainting, Nausea/Vomiting, Shortness of Breath, Weight gain over 2 pounds If questions or concerns contact your physician Or seek help at emergency department. Activity Activity as Tolerated: Yes Activity Instructions: Avoid Stress to Incision Driving Instructions: No Driving/Refer to Dr. Saleem Discharge Diet: No Restrictions Diet After 24 Hours: Clear Liquid if Nauseous If Any Problems/Questions/Issu: Contact Your Physician, Go to Emergency Room Skin/Wound Care Infection Signs and Symptoms: Increased Redness, Foul Odor of Wound, Increased Drainage, Skin Itchy or Has a Rash, Increased Swelling, Temperature Above 101 F Bathing Instructions: Shower Stitches/So/Dermabond Dis: Dermabond SANDRA HENDERSON DO Sep 12, 2021 16:18
[2021-09-12] MEDS ORDERED: morphine INJ 10 MG/ML 1ML (SYR OR VIAL) IVP ONE (16:45)
[2021-09-12] MEDS ORDERED: ONDANSETRON 4 MG/2 ML (SDV) Z0FRAN IVP PRN (16:45)
[2021-09-12] MEDS ORDERED: HYDROmorphone 2 MG/ML VIAL (DILAUDID) IV ONE (16:45)
--- NOTE | 2021-09-12 16:48 | Anesthesia-General Post-Op ---
General Patient Condition Mental Status/LOC: Same as Preop Cardiovascular: Satisfactory Nausea/Vomiting: Absent Respiratory: Satisfactory Pain: Controlled Complications: Absent Post Op Complications Complications None Follow Up Care/Instructions Patient Instructions None needed. Anesthesia/Patient Condition Patient Condition Patient is doing well, no complaints, stable vital signs, no apparent adverse anesthesia problems. No complications reported per nursing. YOLANDA CHAVEZ CRNA Sep 12, 2021 16:48
[2021-09-12] MEDS ORDERED: HYDROcodone/APAP 5 MG/325 MG (LORTAB) TAB PO ONE (17:40)
--- NOTE | 2021-09-13 02:28 | OPERATIVE REPORT ---
DATE OF SERVICE: 09/12/2021 PREOPERATIVE DIAGNOSIS: Left foot malignancy. POSTOPERATIVE DIAGNOSIS: Left foot malignancy, pending pathology. PROCEDURES: 1. Wide local excision. 2. [place] lymph node biopsy. 3. Injection of methylene blue. SURGEON: Sandra Borges DO FIRST ASSISTANTS: VIVIAN Hernandez. ANESTHESIA: LMA. SPECIMENS: 1. Wide local excision of left foot. 2. [place] lymph nodes x3. BLOOD LOSS: Less than 10 mL. FLUIDS: Per anesthesia. POSTOPERATIVE CONDITION: Stable. 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 There is sending out for further studies for delineation, but she needed this removed. FINDINGS: The patient had a left foot malignancy, 1 cm margins were performed as well as sentinel lymph node methylene blue injection. PROCEDURE NOTE: After informed consent was obtained, site marked, the patient was brought to the operating room, placed on the table in supine position. Timeout was performed, everyone agreed on the left foot, then injected around this foot, around the previous area of excision with 2 mL of methylene blue, 0.5 mL around three positions 12, 9, and 3 o'clock as well as then above this towards the ankle. Foot was then massaged for 5 minutes. She was sterilely prepped and draped in normal fashion. Local lidocaine was used to infiltrate around this mass and then had drawn on the skin 1 cm margins going around this using #15 blade, made an incision down through the skin into subcutaneous tissue, then deepened down to subcutaneous tissue with Bovie electrocautery, removing this wide excision of this area, marked it with a short stitch at the medial position, long stitch that was closer to the toes of this excision. This was passed off table, copiously irrigated with normal saline. Hemostasis was obtained, packed with iodoform and then 4 x 4 dressing and then Kerlix. Turned our attention to the left inguinal region. There was an X drawn on the leg, it was about 2 or 3 inches below the inguinal crease, elected to use the Neoprobe and got a reading of 734 on the skin, infiltrated just below the crease with local lidocaine, then made an incision with #15 blade, carried down through the skin into subcutaneous tissue, then deepened down to subcutaneous tissue with Bovie electrocautery. This was a second set up completely clean. Used the Neoprobe and found 1224 in vivo, started dissecting, able to find blue lymph node. Used the blunt dissection as well as a Bovie electrocautery, grasped this with a [place] and then cut this out, ex vivo, this was 2127. Used the Neoprobe in the incision and found another hot area, found another large blue lymph node, grasped this with a Naseem and then removed this with Bovie electrocautery, ex vivo, this was 5147 and we found one more area that was hot, dissected down all the way to the medial aspect of the leg, found another blue lymph node, grasped this with a Naseem and then removed this with Bovie electrocautery, ex vivo, this was 3494. Copiously irrigated the area with normal saline. Hemostasis was obtained using Bovie electrocautery and elected to close the incision, closing the deep tissue, the Jorge's fascia with 3-0 Vicryl two interrupted sutures, then closed the skin with 4-0 undyed Monocryl in a running subcuticular fashion. Area was cleaned and dried. Dermabond placed. The patient tolerated the procedure. Sponge, instrument and needle count correct at the end of the case. Job ID: [id number] DocumentID: [id number] Dictated Date: 09/12/2021 17:17:55 Property Utilization Manager Date: 09/13/2021 02:28:14 Dictated By: SANDRA BORGES DO MTDIfeoma
== END 2021-09-12 18:35 | disposition home or self-care (01) ==
LOC: SDC 10:45
PROVIDERS: ATTEND Surgery
DX: C43.72 Malignant melanoma of left lower limb, including hip (principal); F17.210 Nicotine dependence, cigarettes, uncomplicated; K21.9 Gastro-esophageal reflux disease without esophagitis; F32.A Depression, unspecified; E66.9 Obesity, unspecified; Z68.41 Body mass index [BMI] 40.0-44.9, adult; Z79.2 Long term (current) use of antibiotics; Z79.891 Long term (current) use of opiate analgesic; Z79.899 Other long term (current) drug therapy
CPT/HCPCS: 78195; 84703; 87081

== ENCOUNTER 2021-10-25 09:17 | Outpatient (RCR) | payer MEDICAID ==
[2021-10-25 10:19] LABS: BASOPHILS # (AUTO) 0.1 10^3/uL (0.0-0.1); BASOPHILS % (AUTO) 1 % (0-10); EOSINOPHILS # (AUTO) 0.2 10^3/uL (0.0-0.3); EOSINOPHILS % (AUTO) 1 % (0-10); HEMATOCRIT 44 % (35-52); HEMOGLOBIN 14.7 g/dL (11.5-16.0); LYMPHOCYTES # (AUTO) 5.2 10^3/uL (1.0-4.0); LYMPHOCYTES % (AUTO) 37 % (12-44); MEAN CORPUSCULAR HEMOGLOBIN 30 pg (25-34); MEAN CORPUSCULAR HGB CONC 33 g/dL (32-36); MEAN CORPUSCULAR VOLUME 90 fL (80-99); MEAN PLATELET VOLUME 9.8 fL (9.0-12.2); MONOCYTES # (AUTO) 0.9 10^3/uL (0.0-1.0); MONOCYTES % (AUTO) 6 % (0-12); NEUTROPHILS # (AUTO) 7.3 10^3/uL (1.8-7.8); NEUTROPHILS % (AUTO) 53 % (42-75); PLATELET COUNT 342 10^3/uL (130-400); WHITE BLOOD COUNT 13.9 10^3/uL (4.3-11.0)
[2021-10-25 10:37] LABS: ALBUMIN 4.1 GM/DL (3.2-4.5); BILIRUBIN,TOTAL 0.3 MG/DL (0.1-1.0); CALCIUM 9.2 MG/DL (8.5-10.1); CREATININE SERUM 0.88 MG/DL (0.60-1.30); POTASSIUM 3.9 MMOL/L (3.6-5.0); TOTAL PROTEIN 7.8 GM/DL (6.4-8.2)
[2021-11-07] MEDS ORDERED: OMEP20CA18 PO (15:38)
== END 2021-10-31 | disposition home or self-care (01) ==
LOC: ONC 09:17
PROVIDERS: ATTEND Internal Medicine Hematology & Oncology
DX: C43.72 Malignant melanoma of left lower limb, including hip (principal)
CPT/HCPCS: 80053; 85025; 99213; 99214

== ENCOUNTER → 2021-11-02 | Outpatient (CLI) | payer MEDICAID | END | disposition home or self-care (01) | LOC: PREOP 05:38 | PROVIDERS: ATTEND Surgery | DX: Z01.818 Encounter for other preprocedural examination (principal) ==

== ENCOUNTER 2021-11-09 08:23 | Day surgery (SDC) | payer MEDICAID ==
[~2021-11-09] VITALS: Ht 165 cm; Wt 119.0 kg
[2021-11-09] VITALS (10 sets, daily range): BP systolic 124–162; BP diastolic 73–98
[~2021-11-09 08:23] MED LIST changes: +OMEP20CA18 PO
[2021-11-09] MEDS ORDERED: LACTATED RINGERS 1,000 ML IV PRN (09:15)
[2021-11-09] MEDS ORDERED: 0.9% SODIUM CHLORIDE PF INJ 20 ML VIAL ONE (09:20)
[2021-11-09] MEDS ORDERED: LIDOCAINE/EPI 1%-1:200,000 (XYLOCAINE) 30 ML VIAL ONE (09:20)
[2021-11-09] MEDS ORDERED: HEParin (CENTRAL IV FLUSH) 500 UNIT/5 ML SYR ONE (09:20)
[2021-11-09] MEDS ORDERED: MIDAZOLAM 2 MG/2 ML (VERSED) VIAL ONE (09:24)
[2021-11-09] MEDS ORDERED: PROPOFOL INJECTION 50 ML IV ONE (09:24)
--- NOTE | 2021-11-09 09:26 | Progress Note-Pre Operative ---
Pre-Operative Progress Note H&P Reviewed The H&P was reviewed, patient examined and no changes noted. Time Seen by Provider: 09:23 Date H&P Reviewed: Nov 09, 2021 Time H&P Reviewed: : Pre-Operative Diagnosis: Melanoma, Venous insufficiency SANDRA HENDERSON DO Nov 09, 2021 09:26
[2021-11-09] MEDS ORDERED: proPOfol 200 MG/20 ML (DIPRIVAN) VIAL IV ONE (10:33)
--- NOTE | 2021-11-09 10:59 | Progress Note-Post Operative ---
Post-Operative Progess Note Surgeon (s)/Assistant Director (s) Surgeon SANDRA HENDERSON DO Assistant Director: CATE Harris Pre-Operative Diagnosis Melanoma, Venous insufficiency Post-Operative Diagnosis same Procedure & Operative Findings Date of Procedure 11/09/21 Procedure Performed/Findings Kassandra-cath Placement PROCEDURE: The patient was taken to the operating suite, was prepped and draped in the sterile fashion. A surgical pause was performed. Local anesthetic was infiltrated at the clavicle and along the tract to the right anterior chest, where more local was placed so the pocket could be created. Using an 18 gauge finder needle with negative inspiration the right subclavian vein was accessed on the first attempt and dark nonpulsatile blood was withdrawn. The wire was inserted and fluoroscopy assured proper placement. The needle was removed. The regular wire was inserted and fluoroscopy assured proper placement. The wire was then secured. A #11 blade scalpel was used to make an incision over the right chest and along guidewire. Cautery was used to dissect down to the pectoral fascia. A pocket was created with blunt dissection. The dilator sheath was then advanced over the wire under fluoroscopy and the dilator and wire were removed. The [place] catheter was inserted through the sheath and the sheath was then removed. The [place] wire was removed. The catheter was then tunneled to the right chest pocket. Fluoroscopy was used to cut to length and this was then attached to the port which was then placed within the pocket. The port was then accessed without difficulty. It was then flushed with saline and then heparin. The subcutaneous tissues were then reapproximated using 3-0 Vicryl. Finally the skin was closed with 4-0 undyed monocryl, 3 interrupted sutures. The areas were then washed and dried. Skin Affix was placed over incision. The insertion point of the neck Skin Affix was placed over the incision. The patient tolerated the procedure well without complication and was taken to recovery room in stable condition. Anesthesia Type LMA Estimated Blood Loss Estimated blood loss (mL): scant Specimens/Packing Specimens Removed none SANDRA HENDERSON DO Nov 09, 2021 10:59
[2021-11-09] MEDS ORDERED: ACHD5005 PO (11:01)
--- NOTE | 2021-11-09 11:02 | Discharge Inst-Surgical ---
Discharge Inst-Surgical Depart Medication/Instructions New, Converted or Re-Newed RX: Transmitted to Pharmacy Patient Instructions Follow up Appt: Make appointment for 1 week. [phone] Instructions: May shower in 24 hours, no tub bath or soaking. Use incentive spirometer at home as directed. No Smoking Skin/Wound Care: May remove bandages in am. You need to leave the Dermabond on incision it will fall off on it's own. Symptoms to Report: Appetite Changes, Extremity Discoloration, Numbness/Tingling, Swelling Increased, Bleeding Excessive, Eyesight Changes, Pain Increased, Urine Color Change, Constipation(Persistent), Fever over 101 degree F, Pain/Pressure in chest, Urinating Difficulty, Cough Up/Vomit Blood, Heart Beat Irreg/Pounding, Pain/Pressure in jaw, Cramps in feet or legs, Lightheadedness, Pain/Pressure in shoulder, Diarrhea(Persistent), Memory Changes Suddenly, Questions/Concerns, Weight gain consecutive days, Dizziness/Fainting, Nausea/Vomiting, Shortness of Breath, Weight gain over 2 pounds If questions or concerns contact your physician Or seek help at emergency department. Activity Activity as Tolerated: Yes Driving Instructions: No Driving/Refer to Dr. Saleem Discharge Diet: No Restrictions Diet After 24 Hours: Clear Liquid if Nauseous If Any Problems/Questions/Issu: Contact Your Physician, Go to Emergency Room Skin/Wound Care Infection Signs and Symptoms: Increased Redness, Foul Odor of Wound, Increased Drainage, Skin Itchy or Has a Rash, Increased Swelling, Temperature Above 101 F Bathing Instructions: Shower Stitches/[place]/Dermabond Dis: SANDRA Beckman DO Nov 09, 2021 11:02
[2021-11-09] MEDS ORDERED: morphine INJ 10 MG/ML 1ML (SYR OR VIAL) ONE (11:14)
[2021-11-09] MEDS ORDERED: MEPERIDINE (DEMEROL) INJ 50 MG/ML IVP ONE (11:15)
[2021-11-09] MEDS ORDERED: ONDANSETRON 4 MG/2 ML (SDV) Z0FRAN IVP PRN (11:15)
[2021-11-09] MEDS ORDERED: HYDROmorphone 2 MG/ML VIAL (DILAUDID) IV ONE (11:15)
[2021-11-09] MEDS ORDERED: morphine INJ 10 MG/ML 1ML (SYR OR VIAL) IVP ONE (11:15)
[2021-11-09] MEDS ORDERED: SEVOFLURANE (ULTANE) 15 ML INHAL SOLN ONE (11:27)
--- NOTE | 2021-11-09 11:33 | Diagnostic Imaging Report ---
INDICATION: Fluoroscopy for a right port placement. Fluoroscopy was provided in the OR during a chest wall port placement. 5 seconds of fluoroscopic time was utilized. A single image was obtained demonstrating a right chest wall port tip overlying SVC. IMPRESSION: Fluoroscopy for port placement. Dictated by: Dictated on workstation # [id number]
--- NOTE | 2021-11-09 12:10 | Anesthesia-General Post-Op ---
General Patient Condition Mental Status/LOC: Same as Preop Cardiovascular: Satisfactory Nausea/Vomiting: Absent Respiratory: Satisfactory Pain: Controlled Complications: Absent Post Op Complications Complications None Follow Up Care/Instructions Patient Instructions None needed. Anesthesia/Patient Condition Patient Condition Patient is doing well, no complaints, stable vital signs, no apparent adverse anesthesia problems. No complications reported per nursing. COBY HERNANDEZ CRNA Nov 09, 2021 12:10
== END 2021-11-09 14:00 | disposition home or self-care (01) ==
LOC: SDC 08:23
PROVIDERS: ATTEND Surgery
DX: I87.2 Venous insufficiency (chronic) (peripheral) (principal); C76.52 Malignant neoplasm of left lower limb; E66.9 Obesity, unspecified; F17.210 Nicotine dependence, cigarettes, uncomplicated; Z90.89 Acquired absence of other organs; Z68.41 Body mass index [BMI] 40.0-44.9, adult; Z79.899 Other long term (current) drug therapy
CPT/HCPCS: 76000; 84703; 87081

== ENCOUNTER → 2021-11-16 | Outpatient (CLI) | payer MEDICAID ==
[~2021-11-16] MED LIST changes: +HOLD METFORMIN - RECEIVED CONTRAST 20 ML VIAL IV SCH; +IOHEXOL 350 MG/ML 100 ML (OMNIPAQUE 350) VIAL IV ONE; +NS 100 ML (IVPB) BAG IV ONE
--- NOTE | 2021-11-16 13:41 | Diagnostic Imaging Report ---
PROCEDURE: CT chest with contrast, CT abdomen and pelvis with and without contrast. TECHNIQUE: Pre and post intravenous contrast axial imaging of the abdomen and pelvis and post contrast axial imaging of the chest were performed. Auto Exposure Controls were utilized during the CT exam to meet ALARA standards for radiation dose reduction. 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 CHEST: No lung mass, infiltrate or suspicious pulmonary nodule. There is no thoracic lymphadenopathy. No suspicious or acute soft tissue or osseous chest wall lesion. Central venous catheter is in the lower SVC. There is no pleural or pericardial effusion. ABDOMEN PELVIS: There is fatty infiltration of the liver. No discrete or focal liver mass found and there is no biliary ductal dilatation. There is focal sparing adjacent to the gallbladder fundus. The gallbladder itself normal. There is no bile duct dilatation. Pancreas its duct in the peripancreatic fat appeared normal. Spleen and adrenals are negative. The unobstructed kidneys appeared normal. There is no abdominal, pelvic, mesenteric or retroperitoneal lymphadenopathy. Some mild distortion of the subcutaneous fat and skin about the left groin which may be postoperative but correlate clinically. There is no lymphadenopathy. The uterus and adnexa unremarkable. Urinary bladder normal. There is no small or large bowel obstruction. No ascites, abscess, hematoma or acute fluid collection. No suspicious lytic or sclerotic bony lesion. IMPRESSION: CHEST: No evidence of metastatic disease or acute pathology. ABDOMEN PELVIS: Fatty liver with normal pancreas and no acute biliary pathology. Some distortion of the left groin, skin and subcutaneous fat presumed postsurgical but correlate clinically. Otherwise negative. Dictated by: Dictated on workstation # [id number]
== END ==
LOC: RAD 10:15
PROVIDERS: ATTEND Internal Medicine Hematology & Oncology
DX: C43.9 Malignant melanoma of skin, unspecified (principal); K76.0 Fatty (change of) liver, not elsewhere classified
CPT/HCPCS: 71260; 74178

== ENCOUNTER 2021-11-25 09:20 | Outpatient (RCR) | payer MEDICAID ==
[~2021-11-25] VITALS: Ht 165.1 cm; Wt 118.8 kg
[~2021-11-25 09:20] MED LIST changes: -HOLD METFORMIN - RECEIVED CONTRAST 20 ML VIAL IV SCH; -IOHEXOL 350 MG/ML 100 ML (OMNIPAQUE 350) VIAL IV ONE; -NS 100 ML (IVPB) BAG IV ONE; +NS IV 500 ML (CANCER CENTER) IV SCH; +NS IV SCH; +PEMBROLIZUMAB 200 MG in NS (IVPB) CANCER CENTER 50 ML IV SCH; +PEMBROLIZUMAB IV SCH
[2021-11-25 09:47] LABS: BASOPHILS # (AUTO) 0.1 10^3/uL (0.0-0.1); BASOPHILS % (AUTO) 1 % (0-10); EOSINOPHILS # (AUTO) 0.5 10^3/uL (0.0-0.3); EOSINOPHILS % (AUTO) 7 % (0-10); HEMATOCRIT 41 % (35-52); HEMOGLOBIN 13.2 g/dL (11.5-16.0); LYMPHOCYTES # (AUTO) 2.1 10^3/uL (1.0-4.0); LYMPHOCYTES % (AUTO) 26 % (12-44); MEAN CORPUSCULAR HEMOGLOBIN 30 pg (25-34); MEAN CORPUSCULAR HGB CONC 32 g/dL (32-36); MEAN CORPUSCULAR VOLUME 92 fL (80-99); MEAN PLATELET VOLUME 10.3 fL (9.0-12.2); MONOCYTES # (AUTO) 0.4 10^3/uL (0.0-1.0); MONOCYTES % (AUTO) 5 % (0-12); NEUTROPHILS # (AUTO) 4.9 10^3/uL (1.8-7.8); NEUTROPHILS % (AUTO) 61 % (42-75); PLATELET COUNT 272 10^3/uL (130-400)
[2021-11-25 10:05] LABS: ALBUMIN 3.9 GM/DL (3.2-4.5); BILIRUBIN,TOTAL 0.4 MG/DL (0.1-1.0); CALCIUM 8.8 MG/DL (8.5-10.1); CREATININE SERUM 0.79 MG/DL (0.60-1.30); POTASSIUM 4.4 MMOL/L (3.6-5.0); TOTAL PROTEIN 7.3 GM/DL (6.4-8.2)
== END 2021-11-28 | disposition home or self-care (01) ==
LOC: ONC 09:20
PROVIDERS: ATTEND Internal Medicine Hematology & Oncology
DX: Z51.11 Encounter for antineoplastic chemotherapy (principal); C43.72 Malignant melanoma of left lower limb, including hip
CPT/HCPCS: 36591; 80053; 85025; 96413

== ENCOUNTER 2021-12-14 10:22 | Outpatient (RCR) | payer MEDICAID ==
[~2021-12-14 10:22] MED LIST changes: +NS IV 500 ML (CANCER CENTER) IV SCH; +PEMBROLIZUMAB 200 MG in NS (IVPB) CANCER CENTER 50 ML IV SCH
[2021-12-14 11:09] LABS: BASOPHILS # (AUTO) 0.1 10^3/uL (0.0-0.1); BASOPHILS % (AUTO) 1 % (0-10); EOSINOPHILS # (AUTO) 1.8 10^3/uL (0.0-0.3); EOSINOPHILS % (AUTO) 21 % (0-10); HEMATOCRIT 38 % (35-52); HEMOGLOBIN 12.8 g/dL (11.5-16.0); LYMPHOCYTES # (AUTO) 2.2 10^3/uL (1.0-4.0); LYMPHOCYTES % (AUTO) 26 % (12-44); MEAN CORPUSCULAR HEMOGLOBIN 30 pg (25-34); MEAN CORPUSCULAR HGB CONC 33 g/dL (32-36); MEAN CORPUSCULAR VOLUME 89 fL (80-99); MEAN PLATELET VOLUME 11.2 fL (9.0-12.2); MONOCYTES # (AUTO) 0.4 10^3/uL (0.0-1.0); MONOCYTES % (AUTO) 5 % (0-12); NEUTROPHILS # (AUTO) 3.7 10^3/uL (1.8-7.8); NEUTROPHILS % (AUTO) 45 % (42-75); PLATELET COUNT 227 10^3/uL (130-400); WHITE BLOOD COUNT 8.2 10^3/uL (4.3-11.0)
[2021-12-14 11:35] LABS: ALBUMIN 3.9 GM/DL (3.2-4.5); BILIRUBIN,TOTAL 0.5 MG/DL (0.1-1.0); CALCIUM 8.5 MG/DL (8.5-10.1); CREATININE SERUM 0.73 MG/DL (0.60-1.30); TOTAL PROTEIN 8.3 GM/DL (6.4-8.2)
[2021-12-14 12:00] LABS: POTASSIUM 7.9 MMOL/L (3.6-5.0)
[2021-12-14] MEDS ORDERED: ALTEPLASE 2 MG (CATHFLO) CANCER CENTER IV ONE (12:15)
[2021-12-14 13:27] LABS: ALBUMIN 3.8 GM/DL (3.2-4.5); BILIRUBIN,TOTAL 0.5 MG/DL (0.1-1.0); CALCIUM 8.8 MG/DL (8.5-10.1); CREATININE SERUM 0.75 MG/DL (0.60-1.30); POTASSIUM 4.3 MMOL/L (3.6-5.0); TOTAL PROTEIN 6.8 GM/DL (6.4-8.2)
== END 2021-12-29 | disposition home or self-care (01) ==
LOC: ONC 10:22
PROVIDERS: ATTEND Internal Medicine Hematology & Oncology
DX: Z51.11 Encounter for antineoplastic chemotherapy (principal); Z45.2 Encounter for adjustment and management of vascular access device; C43.72 Malignant melanoma of left lower limb, including hip
CPT/HCPCS: 36591; 36593; 80053; 85025; 96413; 99213

== ENCOUNTER → 2021-12-14 | Outpatient (CLI) | payer MEDICAID ==
[~2021-12-14] MED LIST changes: -NS IV 500 ML (CANCER CENTER) IV SCH; -NS IV SCH; -PEMBROLIZUMAB 200 MG in NS (IVPB) CANCER CENTER 50 ML IV SCH; -PEMBROLIZUMAB IV SCH
--- NOTE | 2021-12-14 13:48 | Diagnostic Imaging Report ---
INDICATION: Chest wall port complication. TIME OF EXAM: 1:36 PM No prior studies are available for comparison. Right chest wall port has tip overlying the SVC. No definite kinking or interruption of the port tubing is identified. The heart size normal. Lungs are clear. There is no infiltrate, effusion or pneumothorax. IMPRESSION: No acute feature identified. Dictated by: Dictated on workstation # [id number]
== END ==
LOC: RAD 13:17
PROVIDERS: ATTEND Internal Medicine Hematology & Oncology
DX: T82.514D Breakdown (mechanical) of infusion catheter, subsequent encounter (principal)
CPT/HCPCS: 71046

== ENCOUNTER 2022-01-25 10:18 | Outpatient (RCR) | payer MEDICAID ==
[2022-01-04 10:41] LABS: BASOPHILS # (AUTO) 0.1 10^3/uL (0.0-0.1); BASOPHILS % (AUTO) 2 % (0-10); EOSINOPHILS # (AUTO) 1.4 10^3/uL (0.0-0.3); EOSINOPHILS % (AUTO) 17 % (0-10); HEMATOCRIT 43 % (35-52); HEMOGLOBIN 14.1 g/dL (11.5-16.0); LYMPHOCYTES # (AUTO) 3.2 10^3/uL (1.0-4.0); LYMPHOCYTES % (AUTO) 39 % (12-44); MEAN CORPUSCULAR HEMOGLOBIN 30 pg (25-34); MEAN CORPUSCULAR HGB CONC 33 g/dL (32-36); MEAN CORPUSCULAR VOLUME 89 fL (80-99); MEAN PLATELET VOLUME 10.3 fL (9.0-12.2); MONOCYTES # (AUTO) 0.4 10^3/uL (0.0-1.0); MONOCYTES % (AUTO) 5 % (0-12); NEUTROPHILS # (AUTO) 3.1 10^3/uL (1.8-7.8); NEUTROPHILS % (AUTO) 37 % (42-75); PLATELET COUNT 317 10^3/uL (130-400); WHITE BLOOD COUNT 8.3 10^3/uL (4.3-11.0)
[2022-01-04 11:06] LABS: ALBUMIN 3.8 GM/DL (3.2-4.5); BILIRUBIN,TOTAL 0.3 MG/DL (0.1-1.0); CALCIUM 8.9 MG/DL (8.5-10.1); CREATININE SERUM 0.74 MG/DL (0.60-1.30); POTASSIUM 4.2 MMOL/L (3.6-5.0); TOTAL PROTEIN 6.9 GM/DL (6.4-8.2)
[~2022-01-25] VITALS: Ht 165.1 cm; Wt 121.6 kg
[~2022-01-25 10:18] MED LIST changes: +HEParin (CENTRAL IV FLUSH) 500 UNIT/5 ML SYR IV PRN; +NS (IVPB) 250 ML IV SCH; -NS IV 500 ML (CANCER CENTER) IV SCH; +PEMBROLIZUMAB 200 MG in NS (IVPB) 50 ML IV SCH; -PEMBROLIZUMAB 200 MG in NS (IVPB) CANCER CENTER 50 ML IV SCH
[2022-01-25 11:05] LABS: BASOPHILS # (AUTO) 0.1 10^3/uL (0.0-0.1); BASOPHILS % (AUTO) 1 % (0-10); EOSINOPHILS # (AUTO) 0.7 10^3/uL (0.0-0.3); EOSINOPHILS % (AUTO) 9 % (0-10); HEMATOCRIT 41 % (35-52); HEMOGLOBIN 13.8 g/dL (11.5-16.0); LYMPHOCYTES # (AUTO) 2.7 10^3/uL (1.0-4.0); LYMPHOCYTES % (AUTO) 33 % (12-44); MEAN CORPUSCULAR HEMOGLOBIN 29 pg (25-34); MEAN CORPUSCULAR HGB CONC 33 g/dL (32-36); MEAN CORPUSCULAR VOLUME 88 fL (80-99); MEAN PLATELET VOLUME 10.5 fL (9.0-12.2); MONOCYTES # (AUTO) 0.5 10^3/uL (0.0-1.0); MONOCYTES % (AUTO) 6 % (0-12); NEUTROPHILS # (AUTO) 4.1 10^3/uL (1.8-7.8); NEUTROPHILS % (AUTO) 51 % (42-75); PLATELET COUNT 262 10^3/uL (130-400); WHITE BLOOD COUNT 8.1 10^3/uL (4.3-11.0)
[2022-01-25 11:23] LABS: BILIRUBIN,TOTAL 0.4 MG/DL (0.1-1.0); CALCIUM 8.9 MG/DL (8.5-10.1); CREATININE SERUM 0.82 MG/DL (0.60-1.30); POTASSIUM 4.2 MMOL/L (3.6-5.0)
== END 2022-01-28 | disposition home or self-care (01) ==
LOC: ONC 10:18
PROVIDERS: ATTEND Internal Medicine Hematology & Oncology
DX: Z51.11 Encounter for antineoplastic chemotherapy (principal); Z45.2 Encounter for adjustment and management of vascular access device; C43.72 Malignant melanoma of left lower limb, including hip
CPT/HCPCS: 36591; 80053; 85025; 96413; 99213

== ENCOUNTER 2022-02-15 09:33 | Outpatient (RCR) | payer MEDICAID ==
[2022-02-15 10:41] LABS: BASOPHILS # (AUTO) 0.1 10^3/uL (0.0-0.1); BASOPHILS % (AUTO) 1 % (0-10); EOSINOPHILS # (AUTO) 1.5 10^3/uL (0.0-0.3); EOSINOPHILS % (AUTO) 16 % (0-10); HEMATOCRIT 40 % (35-52); HEMOGLOBIN 13.2 g/dL (11.5-16.0); LYMPHOCYTES # (AUTO) 2.8 10^3/uL (1.0-4.0); LYMPHOCYTES % (AUTO) 29 % (12-44); MEAN CORPUSCULAR HEMOGLOBIN 29 pg (25-34); MEAN CORPUSCULAR HGB CONC 33 g/dL (32-36); MEAN CORPUSCULAR VOLUME 87 fL (80-99); MEAN PLATELET VOLUME 10.1 fL (9.0-12.2); MONOCYTES # (AUTO) 0.5 10^3/uL (0.0-1.0); MONOCYTES % (AUTO) 5 % (0-12); NEUTROPHILS # (AUTO) 4.8 10^3/uL (1.8-7.8); NEUTROPHILS % (AUTO) 49 % (42-75); PLATELET COUNT 257 10^3/uL (130-400); WHITE BLOOD COUNT 9.8 10^3/uL (4.3-11.0)
[2022-02-15 11:11] LABS: ALBUMIN 3.9 GM/DL (3.2-4.5); BILIRUBIN,TOTAL 0.3 MG/DL (0.1-1.0); CALCIUM 9.1 MG/DL (8.5-10.1); CREATININE SERUM 0.73 MG/DL (0.60-1.30); POTASSIUM 3.9 MMOL/L (3.6-5.0)
== END 2022-02-28 | disposition home or self-care (01) ==
LOC: ONC 09:33
PROVIDERS: ATTEND Internal Medicine Hematology & Oncology
DX: Z51.11 Encounter for antineoplastic chemotherapy (principal); Z45.2 Encounter for adjustment and management of vascular access device; C43.9 Malignant melanoma of skin, unspecified
CPT/HCPCS: 36591; 80053; 85025; 96413

== ENCOUNTER → 2022-03-06 | Outpatient (CLI) | payer MEDICAID ==
[~2022-03-06] MED LIST changes: +CATHETER FLUSH 10 ML SYR IV PRN; -HEParin (CENTRAL IV FLUSH) 500 UNIT/5 ML SYR IV PRN; +IOHEXOL 350 MG/ML 100 ML (OMNIPAQUE 350) VIAL IV ONE; -NS (IVPB) 250 ML IV SCH; +NS 100 ML (IVPB) BAG IV ONE; -PEMBROLIZUMAB 200 MG in NS (IVPB) 50 ML IV SCH
--- NOTE | 2022-03-06 11:26 | Diagnostic Imaging Report ---
PROCEDURE: CT abdomen and pelvis with contrast. TECHNIQUE: Multiple contiguous axial images were obtained through the abdomen and pelvis after administration of intravenous contrast. Auto Exposure Controls were utilized during the CT exam to meet ALARA standards for radiation dose reduction. All CT scans use one or more of the following dose optimizing techniques: automated exposure control, MA and/or KvP adjustment based on patient size and exam type or iterative reconstruction. INDICATION: Melanoma, follow-up. Correlation is made with prior CT from 11/16/2021. FINDINGS: The lung bases are clear. Liver again demonstrates significant diffuse low density consistent with hepatic steatosis. No discrete liver mass is identified. The gallbladder is unremarkable. There is no biliary ductal dilatation. The pancreas and spleen are unremarkable. No adrenal mass is detected. Kidneys are unremarkable. Aorta is nonaneurysmal. No central retroperitoneal or mesenteric lymphadenopathy is detected. Occasional diverticula are present within the descending and sigmoid colon but no evidence of acute diverticulitis. The uterus and bladder are unremarkable. There appears to be a contraceptive device midline pelvis. No definite pelvic lymphadenopathy is identified. No free fluid or fluid collection is seen. The bony structures are nonacute. IMPRESSION: 1. Hepatic steatosis. 2. No evidence of abdominal or pelvic lymphadenopathy or metastatic disease. 3. Uncomplicated diverticulosis. Dictated by: Dictated on workstation # [id number]
== END ==
LOC: RAD 10:15
PROVIDERS: ATTEND Internal Medicine Hematology & Oncology
DX: C43.9 Malignant melanoma of skin, unspecified (principal); K76.0 Fatty (change of) liver, not elsewhere classified; K57.30 Diverticulosis of large intestine without perforation or abscess without bleeding
CPT/HCPCS: 74177

== ENCOUNTER 2022-03-08 11:32 | Outpatient (RCR) | payer MEDICAID ==
[~2022-03-08 11:32] MED LIST changes: -CATHETER FLUSH 10 ML SYR IV PRN; +HEParin (CENTRAL IV FLUSH) 500 UNIT/5 ML SYR IV PRN; -IOHEXOL 350 MG/ML 100 ML (OMNIPAQUE 350) VIAL IV ONE; +NS (IVPB) 250 ML IV SCH; -NS 100 ML (IVPB) BAG IV ONE; +PEMBROLIZUMAB 200 MG in NS (IVPB) 50 ML IV SCH
[2022-03-08 12:12] LABS: BASOPHILS # (AUTO) 0.1 10^3/uL (0.0-0.1); BASOPHILS % (AUTO) 2 % (0-10); EOSINOPHILS % (AUTO) 14 % (0-10); HEMATOCRIT 44 % (35-52); HEMOGLOBIN 14.5 g/dL (11.5-16.0); LYMPHOCYTES # (AUTO) 2.7 10^3/uL (1.0-4.0); LYMPHOCYTES % (AUTO) 40 % (12-44); MEAN CORPUSCULAR HEMOGLOBIN 29 pg (25-34); MEAN CORPUSCULAR HGB CONC 33 g/dL (32-36); MEAN CORPUSCULAR VOLUME 86 fL (80-99); MEAN PLATELET VOLUME 10.2 fL (9.0-12.2); MONOCYTES # (AUTO) 0.4 10^3/uL (0.0-1.0); MONOCYTES % (AUTO) 6 % (0-12); NEUTROPHILS # (AUTO) 2.6 10^3/uL (1.8-7.8); NEUTROPHILS % (AUTO) 38 % (42-75); PLATELET COUNT 298 10^3/uL (130-400); WHITE BLOOD COUNT 6.8 10^3/uL (4.3-11.0)
[2022-03-08 12:29] LABS: ALBUMIN 4.3 GM/DL (3.2-4.5)
[2022-03-08 12:30] LABS: CALCIUM 9.2 MG/DL (8.5-10.1)
[2022-03-08 12:31] LABS: TOTAL PROTEIN 7.6 GM/DL (6.4-8.2)
[2022-03-08 12:33] LABS: BILIRUBIN,TOTAL 0.6 MG/DL (0.1-1.0)
[2022-03-08 12:35] LABS: CREATININE SERUM 0.8 MG/DL (0.60-1.30)
== END 2022-03-30 | disposition home or self-care (01) ==
LOC: ONC 11:32
PROVIDERS: ATTEND Internal Medicine Hematology & Oncology
DX: Z51.11 Encounter for antineoplastic chemotherapy (principal); Z45.2 Encounter for adjustment and management of vascular access device; C43.9 Malignant melanoma of skin, unspecified
CPT/HCPCS: 36591; 80053; 85025; 96413

== ENCOUNTER → 2022-03-15 | Outpatient (CLI) | payer MEDICAID ==
[~2022-03-15] MED LIST changes: -HEParin (CENTRAL IV FLUSH) 500 UNIT/5 ML SYR IV PRN; +HOLD METFORMIN - RECEIVED CONTRAST 20 ML VIAL IV SCH; +IOHEXOL 350 MG/ML 100 ML (OMNIPAQUE 350) VIAL IV ONE; -NS (IVPB) 250 ML IV SCH; +NS 100 ML (IVPB) BAG IV ONE; -PEMBROLIZUMAB 200 MG in NS (IVPB) 50 ML IV SCH
--- NOTE | 2022-03-15 11:27 | Diagnostic Imaging Report ---
PROCEDURE: CT chest with contrast only. TECHNIQUE: Multiple contiguous axial images were obtained through the chest after administration of intravenous contrast. Auto Exposure Controls were utilized during the CT exam to meet ALARA standards for radiation dose reduction. INDICATION: Melanoma. Correlation is made with prior CT chest from 11/16/2021. Right chest wall port appears to have the tip deflected retrograde into the low right internal jugular vein. No axillary lymphadenopathy is identified. There are normal-sized lymph nodes in the mediastinum. No pathologically enlarged mediastinal or hilar lymph nodes are detected. There is no pericardial or pleural fluid identified. There is some minimal patchy groundglass infiltrate in the left upper lobe. No pulmonary nodules are identified. Upper abdomen does show diffuse low density throughout the liver consistent with hepatic steatosis. Bony structures are nonacute. IMPRESSION: 1. Malpositioned right chest wall port which has the tip directed retrograde in the low right internal jugular vein. 2. No evidence of thoracic lymphadenopathy or pulmonary metastatic disease. Dictated by: Dictated on workstation # [id number]
== END ==
LOC: RAD 10:28
PROVIDERS: ATTEND Internal Medicine Hematology & Oncology
DX: C43.9 Malignant melanoma of skin, unspecified (principal); T85.628A Displacement of other specified internal prosthetic devices, implants and grafts, initial encounter
CPT/HCPCS: 71260

== ENCOUNTER 2022-04-01 08:40 | Emergency (ER) | payer MEDICAID ==
[~2022-04-01] VITALS: Ht 165 cm; Wt 113.5 kg
[~2022-04-01 08:40] MED LIST changes: -HOLD METFORMIN - RECEIVED CONTRAST 20 ML VIAL IV SCH; -IOHEXOL 350 MG/ML 100 ML (OMNIPAQUE 350) VIAL IV ONE; -NS 100 ML (IVPB) BAG IV ONE
--- NOTE | 2022-04-01 09:49 | ED Abdominal Pain ---
General Chief Complaint: Abdominal/GI Problems Stated Complaint: RLQ PAIN Nursing Triage Note: PT AMBULATORY TO ER. PT C/O RLQ ABD PAIN ONSET THIS AM, +NAUSEA. Source of Information: Patient Exam Limitations: No Limitations History of Present Illness Date Seen by Provider: Apr 01, 2022 Time Seen by Provider: 09:43 Initial Comments Patient is a 26-year-old female who presents to the emergency department with a chief complaint of left-sided abdominal pain onset when she woke up this morning. She states she has been a little nauseous. She has not taken anything for the pain. 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 Carter. She is on Keytruda and started it in November. Her next round of chemo is not due until later next week. She denies diarrhea, black or bloody stools. Her last menstrual cycle was in March, she states she is on control. Nothing makes the pain any better or any worse, it comes in "spasms". She currently rates it at a "3". She has not had anything to eat or drink this morning. She has had no prior abdominal surgeries. She denies burning with urination or abnormal vaginal discharge. No other complaints of illness or injury. She states she has had a history of diverticula diagnosed on CAT scan at [facility] in the past. She has never had endoscopy or colonoscopy. All other review of systems reviewed and negative except as stated. Timing/Duration: 1-3 Hours Severity/Quality: Mild, Cramping Location: RUQ, RLQ Radiation: No Radiation Activities at Onset: Sleeping Associated Symptoms: Nausea/Vomiting (nausea without vomiting) Allergies and Home Medications Allergies Coded Allergies: No Known Drug Allergies (Unverified , 08/15/21) Patient Home Medication List Home Medication List Reviewed: Yes Escitalopram Oxalate (Escitalopram Oxalate) 20 Mg Tablet, 20 MG PO DAILY, (Reported) Entered as Reported by: MIRANDA KOLB on 08/15/21 1342 Hydrocodone Bit/Acetaminophen (HYDROcodone/APAP 5 MG/325 MG TAB) 1 Tab Tab, 1 TAB PO Q8H PRN for PAIN-MODERATE (5-7) Prescribed by: SANDRA HENDERSON on 11/09/21 1101 Loratadine (Loratadine) 10 Mg Tablet, 10 MG PO DAILY, (Reported) Entered as Reported by: MEKHI ZAPATA on 01/13/20 0511 Norgestimate-Ethinyl Estradiol (Tri-Sprintec Tablet) 1 Each Tablet, 1 EACH PO DAILY, (Reported) Entered as Reported by: MIRANDA KOLB on 08/15/21 1342 Omeprazole (Omeprazole) 20 Mg Capsule.dr, 20 MG PO, (Reported) Entered as Reported by: MIRANDA KOLB on 11/07/21 1538 Review of Systems Review of Systems Constitutional: see HPI EENTM: No Symptoms Reported Respiratory: No Symptoms Reported Cardiovascular: No Symptoms Reported Gastrointestinal: Abdominal Pain, Nausea Genitourinary: No Symptoms Reported Musculoskeletal: no symptoms reported Skin: no symptoms reported All Other Systems Reviewed Negative Unless Noted: Yes Past Dslbrrq-Bpumpa-Ygehnh Hx Patient Social History Use of E-Cig and/or Vaping dev: No Substance use?: Yes Substance type: Marijuana Alcohol Use?: No Pt feels they are or have been: No Immunizations Up To Date Tetanus Booster (TDap): Unknown PED Vaccines UTD: No First/Initial COVID19 Vaccinat: AUG 2021 Second COVID19 Vaccination Christian: MAY 2021 Third COVID19 Vaccination Date: MAY 2021 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 Seasonal Allergies Seasonal Allergies: No Past Medical History Surgeries: Yes (left foot tumor removed) Adenoidectomy, Tonsillectomy Respiratory: No Currently Using CPAP: No Currently Using BIPAP: No Cardiac: No Neurological: Yes Headaches /Migraines Last Menstrual Period: Mar 15, 2022 Reproductive Disorders: No Genitourinary: No Gastrointestinal: Yes Gastroesophageal Reflux, Diverticulosis Musculoskeletal: No Endocrine: No HEENT: No Cancer: Yes Melanoma What Type of Treatment Did You: Surgical Intervention Psychosocial: Yes Depression Integumentary: Yes (MELANOMA FOOT) Recent Skin Changes Blood Disorders: Yes (ANEMIA) Adverse Reaction/Blood Tranf: No Family Medical History Degenerative back FH: congestive heart failure (Grandfather father's side) FH: diverticulitis (Father) FH: ovarian cancer (Great grandmother maternal side) FH: type 2 diabetes (Mother and father) Hypertension (Grandfather father's side) Physical Exam Vital Signs Vital Signs - First Documented 04/01/22 04/01/22 08:54 09:17 Temp 36.9 Pulse 95 Resp 18 B/P (MAP) 138/98 (111) Pulse Ox 94 O2 Delivery Room Air Capillary Refill : Height/Weight/BMI Height: 5'5.00" Weight: 212lbs. 0.8oz. 96.168100vs; 41.00 BMI Method:Stated General Appearance: WD/WN, no apparent distress HEENT: PERRL/EOMI Neck: full range of motion Respiratory: lungs clear, normal breath sounds, no respiratory distress, no accessory muscle use Cardiovascular: regular rate, rhythm Gastrointestinal: soft, tenderness (Mild RUQ tenderness, no rebound; no guarding. Neg Jones's) Extremities: normal range of motion, normal inspection Neurologic/Psychiatric: alert, normal mood/affect, oriented x 3 Skin: normal color, warm/dry Progress/Results/Core Measures Results/Orders Lab Results Laboratory Tests Test 04/01/22 09:29 Range/Units White Blood Count 11.3 H 4.3-11.0 10^3/uL Red Blood Count 4.84 3.80-5.11 10^6/uL Hemoglobin 13.9 11.5-16.0 g/dL Hematocrit 42 35-52 % Mean Corpuscular Volume 87 80-99 fL Mean Corpuscular Hemoglobin 29 25-34 pg Mean Corpuscular Hemoglobin Concent 33 32-36 g/dL Red Cell Distribution Width 13.2 10.0-14.5 % Platelet Count 291 130-400 10^3/uL Mean Platelet Volume 11.0 9.0-12.2 fL Immature Granulocyte % (Auto) 0 % Neutrophils (%) (Auto) 70 42-75 % Lymphocytes (%) (Auto) 16 12-44 % Monocytes (%) (Auto) 5 0-12 % Eosinophils (%) (Auto) 8 0-10 % Basophils (%) (Auto) 1 0-10 % Neutrophils # (Auto) 7.8 1.8-7.8 10^3/uL Lymphocytes # (Auto) 1.9 1.0-4.0 10^3/uL Monocytes # (Auto) 0.6 0.0-1.0 10^3/uL Eosinophils # (Auto) 0.9 H 0.0-0.3 10^3/uL Basophils # (Auto) 0.1 0.0-0.1 10^3/uL Immature Granulocyte # (Auto) 0.0 0.0-0.1 10^3/uL Urine Color YELLOW Urine Clarity CLEAR Urine pH 5.5 5-9 Urine Specific [place] 1.025 H 1.016-1.022 Urine Protein NEGATIVE NEGATIVE Urine Glucose (UA) NEGATIVE NEGATIVE Urine Ketones NEGATIVE NEGATIVE Urine Nitrite NEGATIVE NEGATIVE Urine Bilirubin NEGATIVE NEGATIVE Urine Urobilinogen 0.2 < = 1.0 MG/DL Urine Leukocyte Esterase NEGATIVE NEGATIVE Urine RBC (Auto) TRACE-I H NEGATIVE Urine RBC RARE /HPF Urine WBC NONE /HPF Urine Squamous Epithelial Cells RARE /HPF Urine Crystals NONE /LPF Urine Bacteria NEGATIVE /HPF Urine Casts NONE /LPF Urine Mucus NEGATIVE /LPF Urine Culture Indicated NO Sodium Level 139 135-145 MMOL/L Potassium Level 4.1 3.6-5.0 MMOL/L Chloride Level 106 98-107 MMOL/L Carbon Dioxide Level 22 21-32 MMOL/L Anion Gap 11 5-14 MMOL/L Blood Urea Nitrogen 9 7-18 MG/DL Creatinine 0.82 0.60-1.30 MG/DL Estimat Glomerular Filtration Rate 101 BUN/Creatinine Ratio 11 Glucose Level 112 H 70-105 MG/DL Calcium Level 8.9 8.5-10.1 MG/DL Corrected Calcium 8.8 8.5-10.1 MG/DL Total Bilirubin 0.5 0.1-1.0 MG/DL Aspartate Amino Transf (AST/SGOT) 17 5-34 U/L Alanine Aminotransferase (ALT/SGPT) 28 0-55 U/L Alkaline Phosphatase 93 40-136 U/L Total Protein 7.2 6.4-8.2 GM/DL Albumin 4.1 3.2-4.5 GM/DL Lipase 19 8-78 U/L My Orders Orders - HERNESTO DAMICO MD Ed Iv/Invasive Line Start (04/01/22 09:53) Cbc With Automated Diff (04/01/22 09:53) Comprehensive Metabolic Panel (04/01/22 09:53) Lipase (04/01/22 09:53) Urine Bedside (04/01/22 09:53) Ua Culture If Indicated (04/01/22 09:53) Ketorolac Injection (Toradol Injection) (04/01/22 10:00) Ondansetron Injection (Zofran Injectio (04/01/22 10:00) Medications Given in ED Current Medications Medications Dose Ordered Sig/Gasper Route Start Time Stop Time Status Last Admin Dose Admin Ketorolac Tromethamine 15 mg ONCE ONCE IVP 04/01/22 10:00 04/01/22 10:01 DC 04/01/22 09:59 15 MG Ondansetron HCl 4 mg ONCE ONCE IVP 04/01/22 10:00 04/01/22 10:01 DC 04/01/22 09:59 4 MG Vital Signs/I&O 04/01/22 04/01/22 04/01/22 08:54 09:17 11:06 Temp 36.9 Pulse 95 86 83 Resp 18 18 B/P (MAP) 138/98 (111) 136/81 124/74 Pulse Ox 94 96 96 O2 Delivery Room Air Room Air Blood Pressure Mean: 99 Progress Progress Note : Time: 11:09 Progress Note Patient's labs reviewed, within normal limits. No significant findings to suggest that she needs further studies such as imaging. Her abdominal exam is benign. She has some very mild right upper quadrant and right lower quadrant abdominal tenderness. I talked to her about conservative treatment over the next 12 to 24 hours. Return precautions to include fever, vomiting worsening pain. She is comfortable with plan of care. All questions are sought and answered. Departure Impression Primary Impression: Abdominal pain Qualified Codes: R10.11 - Right upper quadrant pain Disposition: 01 HOME, SELF-CARE Condition: Stable Departure-Patient Inst. Decision time for Depature: 11:10 Referrals: LEONARDO HERRERA MD (PCP/Family) Primary Care Physician Patient Instructions: Severe Abdominal Pain, Adult (DC) Add. Discharge Instructions: Drink plenty of fluids to stay well-hydrated. Follow a bland diet for the next 12 to 24 hours. You can take hkig-jxm-zayrflv ibuprofen, 3 tablets which is 600 mg every 6 hours with food as needed for pain. You can also take extra strength Tylenol as directed on the packaging. If you develop a fever, worsening pain, persistent vomiting please come back to the emergency department for reevaluation. Please follow-up with your primary care provider. Copy Copies To 1: LEONARDO HERRERA MD, KATHRYN M MD Apr 01, 2022 09:49
[2022-04-01 09:59] LABS: BASOPHILS # (AUTO) 0.1 10^3/uL (0.0-0.1); BASOPHILS % (AUTO) 1 % (0-10); BILIRUBIN,URINE NEGATIVE (NEGATIVE); CLARITY,URINE CLEAR; COLOR,URINE YELLOW; EOSINOPHILS # (AUTO) 0.9 10^3/uL (0.0-0.3); EOSINOPHILS % (AUTO) 8 % (0-10); GLUCOSE, URINE (UA) NEGATIVE (NEGATIVE); HEMATOCRIT 42 % (35-52); HEMOGLOBIN 13.9 g/dL (11.5-16.0); KETONES,URINE NEGATIVE (NEGATIVE); LEUKOCYTE ESTERASE ,URINE NEGATIVE (NEGATIVE); LYMPHOCYTES # (AUTO) 1.9 10^3/uL (1.0-4.0); LYMPHOCYTES % (AUTO) 16 % (12-44); MEAN CORPUSCULAR HEMOGLOBIN 29 pg (25-34); MEAN CORPUSCULAR HGB CONC 33 g/dL (32-36); MEAN CORPUSCULAR VOLUME 87 fL (80-99); MONOCYTES # (AUTO) 0.6 10^3/uL (0.0-1.0); MONOCYTES % (AUTO) 5 % (0-12); NEUTROPHILS # (AUTO) 7.8 10^3/uL (1.8-7.8); NEUTROPHILS % (AUTO) 70 % (42-75); NITRITE,URINE NEGATIVE (NEGATIVE); PH,URINE 5.5 (5-9); PLATELET COUNT 291 10^3/uL (130-400); PROTEIN,URINE NEGATIVE (NEGATIVE); WHITE BLOOD COUNT 11.3 10^3/uL (4.3-11.0)
[2022-04-01] MEDS ORDERED: KETOROLAC 30 MG/ML VIAL IVP ONE (10:00)
[2022-04-01] MEDS ORDERED: ONDANSETRON 4 MG/2 ML (SDV) Z0FRAN IVP ONE (10:00)
[2022-04-01 10:09] LABS: BACTERIA,URINE NEGATIVE /HPF; RBC,URINE RARE /HPF; SQUAMOUS EPITHELIAL CELL,UR RARE /HPF
[2022-04-01 10:10] LABS: ALBUMIN 4.1 GM/DL (3.2-4.5); POTASSIUM 4.1 MMOL/L (3.6-5.0)
[2022-04-01 10:11] LABS: CALCIUM 8.9 MG/DL (8.5-10.1)
[2022-04-01 10:12] LABS: TOTAL PROTEIN 7.2 GM/DL (6.4-8.2)
[2022-04-01 10:14] LABS: BILIRUBIN,TOTAL 0.5 MG/DL (0.1-1.0)
[2022-04-01 10:16] LABS: CREATININE SERUM 0.82 MG/DL (0.60-1.30)
[2022-04-01 11:13] VITALS: BP 124/74
== END 2022-04-01 11:16 | disposition home or self-care (01) ==
LOC: EDUNIT# 08:40 → ER 08:42
DX: R10.11 Right upper quadrant pain (principal); R10.31 Right lower quadrant pain; C43.72 Malignant melanoma of left lower limb, including hip; Z97.5 Presence of (intrauterine) contraceptive device
CPT/HCPCS: 36415; 80053; 81000; 83690; 84703; 85025

== ENCOUNTER 2022-04-11 05:28 | Outpatient (CLI) | payer MEDICAID ==
[~2022-04-11] VITALS: Ht 165.1 cm; Wt 114.1 kg
== END 2022-04-12 13:38 | disposition home or self-care (01) ==
LOC: PREOP 05:28
PROVIDERS: ATTEND Surgery
DX: Z01.818 Encounter for other preprocedural examination (principal)

== ENCOUNTER 2022-04-18 08:55 | Day surgery (SDC) | payer MEDICAID ==
[~2022-04-18] VITALS: Ht 165.1 cm; Wt 114.1 kg
[2022-04-18] VITALS (7 sets, daily range): BP systolic 137–160; BP diastolic 72–92
[2022-04-18] MEDS ORDERED: LIDOCAINE/EPI 2% 1:100,00 (XYLOCAINE) 20 ML VIAL ONE ×2 (09:22→10:14)
[2022-04-18] MEDS ORDERED: HEParin (CENTRAL IV FLUSH) 500 UNIT/5 ML SYR ONE (09:22)
[2022-04-18] MEDS ORDERED: 0.9% SODIUM CHLORIDE PF INJ 20 ML VIAL ONE (09:22)
[2022-04-18] MEDS ORDERED: ceFAZolin 2 GM IV Premixed 50 ML IV ONE (09:30)
[2022-04-18] MEDS ORDERED: LACTATED RINGERS 1,000 ML IV PRN (09:30)
[2022-04-18] MEDS ORDERED: PROPOFOL INJECTION 50 ML IV ONE ×2 (09:34→12:12)
[2022-04-18] MEDS ORDERED: fentaNYL INJ 100 MCG/2 ML AMP ONE (09:34)
[2022-04-18] MEDS ORDERED: MIDAZOLAM 2 MG/2 ML (VERSED) VIAL ONE (09:35)
[2022-04-18] MEDS ORDERED: ceFAZolin 2 GM IV Premixed 50 ML ONE (09:47)
--- NOTE | 2022-04-18 11:27 | Progress Note-Pre Operative ---
Pre-Operative Progress Note H&P Reviewed The H&P was reviewed, patient examined and no changes noted. Time Seen by Provider: 11:25 Date H&P Reviewed: Apr 18, 2022 Time H&P Reviewed: 11:25 Pre-Operative Diagnosis: Kassandra-cath tip in wrong position SANDRA HENDERSON DO Apr 18, 2022 11:27
--- NOTE | 2022-04-18 12:19 | Progress Note-Post Operative ---
Post-Operative Progess Note Surgeon (s)/Nail Technician (s) Surgeon SANDRA HENDERSON DO Nail Technician: none Pre-Operative Diagnosis Kassandra-cath tip in wrong position Post-Operative Diagnosis Same plus Keloid Melanoma Venous insufficiency Procedure & Operative Findings Date of Procedure 04/18/22 Procedure Performed/Findings 1) Kassandra-cath placement 2) Kassandra-cath removal 3) Scar Revision PROCEDURE: The patient was taken to the operating suite, was prepped and draped in the sterile fashion. A surgical pause was performed. Local anesthetic was infiltrated at the clavicle and along the tract to the right anterior chest, where more local was placed so the pocket could be created. Using an 18 gauge finder needle with negative inspiration the left subclavian vein was accessed on the first attempt and dark nonpulsatile blood was withdrawn. The wire was inserted and fluoroscopy assured proper placement. The needle was removed. The regular wire was inserted and fluoroscopy assured proper placement. The wire was then secured. A #11 blade scalpel was used to make an incision over the right chest and along guidewire. Cautery was used to dissect down to the pectoral fascia. A pocket was created with blunt dissection. The dilator sheath was then advanced over the wire under fluoroscopy and the dilator and wire were removed. The Groshong catheter was inserted through the sheath and the sheath was then removed. The Groshong wire was removed. The catheter was then tunneled to the right chest pocket. Fluoroscopy was used to cut to length and this was then attached to the port which was then placed within the pocket. The port was then accessed without difficulty. It was then flushed with saline and then heparin. The subcutaneous tissues were then reapproximated using 3-0 Vicryl. Finally the skin was closed with 4-0 undyed monocryl, 3 interrupted sutures. The areas were then washed and dried. Skin Affix was placed over incision. The insertion point of the neck Skin Affix was placed over the incision. INDICATIONS: The patient is a 26 year-old female who had a port previously placed. Unfortunately catheter tip went up in to the neck after a coughing episode and needs port removed. The patient was explained risk and benefits of the procedure and wished to proceed with procedure. Consent was signed on the chart. PROCEDURE: Local anesthetic was infiltrated to the area around the port. A number 15 blade scalpel was used to make an incision around the keloid scar. Cautery was used to remove the Keloid and then dissect down to the port which was then grasped and then dissected around. The catheter was removed in its entirety and closed the tract with 3-0 Vicryl figure of eight suture. The port was then able to be dissected out of the pocket and elevated. The wound was then irrigated with copious amounts of irrigation. Hemostasis had been achieved. The subcutaneous tissues were then reapproximated using 3-0 Vicryl, 4 interrupted stitches. Skin was then closed using 4-0 undyed Monocryl in a running subcuticular fashion. The area was then washed and dried and Skin Affix placed over the incision. The patient tolerated the procedure well without complication and was taken to recovery room in stable condition. Anesthesia Type IV sedation by SURVEILLANCE OFFICER Estimated Blood Loss Estimated blood loss (mL): less than 5ml Specimens/Packing Specimens Removed right sided port SANDRA HENDERSON DO Apr 18, 2022 12:19
[2022-04-18] MEDS ORDERED: ACHD5005 PO (12:20)
--- NOTE | 2022-04-18 12:21 | Discharge Inst-Surgical ---
Discharge Inst-Surgical Depart Medication/Instructions New, Converted or Re-Newed RX: Transmitted to Pharmacy Patient Instructions Follow up Appt: Make appointment for 1 week. [phone] Instructions: No strenuous activity. May shower in 24 hours, no tub bath or soaking. Use incentive spirometer at home as directed. No Smoking Skin/Wound Care: May remove bandages in am. You need to leave the Dermabond on incision it will fall off on it's own. Symptoms to Report: Appetite Changes, Extremity Discoloration, Numbness/Tingling, Swelling Increased, Bleeding Excessive, Eyesight Changes, Pain Increased, Urine Color C hange, Constipation(Persistent), Fever over 101 degree F, Pain/Pressure in chest, Urinating Difficulty, Cough Up/Vomit Blood, Heart Beat Irreg/Pounding, Pain/Pressure in jaw, Cramps in feet or legs, Lightheadedness, Pain/Pressure in shoulder, Diarrhea(Persistent), Memory Changes Suddenly, Questions/Concerns, Weight gain consecutive days, Dizziness/Fainting, Nausea/Vomiting, Shortness of Breath, Weight gain over 2 pounds If questions or concerns contact your physician Or seek help at emergency department. Activity Activity as Tolerated: Yes Activity Instructions: Avoid Stress to Incision Driving Instructions: No Driving/Refer to Diet Discharge Diet: No Restrictions Diet After 24 Hours: Clear Liquid if Nauseous If Any Problems/Questions/Issu: Contact Your Physician, Go to Emergency Room Skin/Wound Care Infection Signs and Symptoms: Increased Redness, Foul Odor of Wound, Increased Drainage, Skin Itchy or Has a Rash, Increased Swelling, Temperature Above 101 F Bathing Instructions: Shower Stitches/So/Dermabond Dis: SANDRA Beckman DO Apr 18, 2022 12:21
--- NOTE | 2022-04-18 14:27 | Diagnostic Imaging Report ---
Indication: Port removal and port replacement. History of melanoma. Total fluoroscopy time: 6 seconds Total number fluoroscopic images saved: Tube FINDINGS: Multiple intraoperative image intensifier views of the chest are obtained during left-sided Port-A-Cath placement. Images provided show left subclavian venous approach. Central tip terminates over the right atrium. Evaluation for pneumothorax is suboptimal given fluoroscopic modality. Please note, interpreting radiologist was not present during the procedure. IMPRESSION: 1. Fluoroscopic guidance provided during Port-A-Cath placement. Dictated by: Dictated on workstation # [id number]
== END 2022-04-18 13:50 | disposition home or self-care (01) ==
LOC: SDC 08:55
PROVIDERS: ATTEND Surgery
DX: T82.524A Displacement of infusion catheter, initial encounter (principal); C43.9 Malignant melanoma of skin, unspecified; I87.2 Venous insufficiency (chronic) (peripheral); F17.210 Nicotine dependence, cigarettes, uncomplicated
CPT/HCPCS: 76000; 84703; 87081

== ENCOUNTER 2022-04-26 09:14 | Outpatient (RCR) | payer MEDICAID ==
[2022-04-05 11:24] LABS: BASOPHILS # (AUTO) 0.1 10^3/uL (0.0-0.1); BASOPHILS % (AUTO) 1 % (0-10); EOSINOPHILS # (AUTO) 1.2 10^3/uL (0.0-0.3); EOSINOPHILS % (AUTO) 17 % (0-10); HEMATOCRIT 42 % (35-52); LYMPHOCYTES % (AUTO) 28 % (12-44); MEAN CORPUSCULAR HEMOGLOBIN 29 pg (25-34); MEAN CORPUSCULAR HGB CONC 33 g/dL (32-36); MEAN CORPUSCULAR VOLUME 86 fL (80-99); MEAN PLATELET VOLUME 10.5 fL (9.0-12.2); MONOCYTES # (AUTO) 0.4 10^3/uL (0.0-1.0); MONOCYTES % (AUTO) 6 % (0-12); NEUTROPHILS # (AUTO) 3.5 10^3/uL (1.8-7.8); NEUTROPHILS % (AUTO) 48 % (42-75); PLATELET COUNT 274 10^3/uL (130-400); WHITE BLOOD COUNT 7.2 10^3/uL (4.3-11.0)
[2022-04-05 11:44] LABS: ALBUMIN 4.2 GM/DL (3.2-4.5); BILIRUBIN,TOTAL 0.5 MG/DL (0.1-1.0); CALCIUM 9.2 MG/DL (8.5-10.1); CREATININE SERUM 0.77 MG/DL (0.60-1.30); POTASSIUM 4.2 MMOL/L (3.6-5.0); TOTAL PROTEIN 7.7 GM/DL (6.4-8.2)
[~2022-04-26 09:14] MED LIST changes: +HEParin (CENTRAL IV FLUSH) 500 UNIT/5 ML SYR IV PRN; +NS (IVPB) 250 ML IV SCH; +PEMBROLIZUMAB 200 MG in NS (IVPB) 50 ML IV SCH
[2022-04-26 09:39] LABS: BASOPHILS # (AUTO) 0.1 10^3/uL (0.0-0.1); BASOPHILS % (AUTO) 1 % (0-10); EOSINOPHILS # (AUTO) 2.5 10^3/uL (0.0-0.3); EOSINOPHILS % (AUTO) 24 % (0-10); HEMATOCRIT 43 % (35-52); HEMOGLOBIN 14.3 g/dL (11.5-16.0); LYMPHOCYTES # (AUTO) 2.4 10^3/uL (1.0-4.0); LYMPHOCYTES % (AUTO) 23 % (12-44); MEAN CORPUSCULAR HEMOGLOBIN 29 pg (25-34); MEAN CORPUSCULAR HGB CONC 34 g/dL (32-36); MEAN CORPUSCULAR VOLUME 86 fL (80-99); MEAN PLATELET VOLUME 10.3 fL (9.0-12.2); MONOCYTES # (AUTO) 0.5 10^3/uL (0.0-1.0); MONOCYTES % (AUTO) 5 % (0-12); NEUTROPHILS # (AUTO) 4.9 10^3/uL (1.8-7.8); NEUTROPHILS % (AUTO) 47 % (42-75); PLATELET COUNT 306 10^3/uL (130-400); WHITE BLOOD COUNT 10.5 10^3/uL (4.3-11.0)
[2022-04-26 09:58] LABS: BILIRUBIN,TOTAL 0.7 MG/DL (0.1-1.0); CALCIUM 9.2 MG/DL (8.5-10.1); CREATININE SERUM 0.83 MG/DL (0.60-1.30); POTASSIUM 4.1 MMOL/L (3.6-5.0); TOTAL PROTEIN 7.5 GM/DL (6.4-8.2)
== END 2022-04-30 | disposition home or self-care (01) ==
LOC: ONC 09:14
PROVIDERS: ATTEND Internal Medicine Hematology & Oncology
DX: Z51.11 Encounter for antineoplastic chemotherapy (principal); Z45.2 Encounter for adjustment and management of vascular access device; C43.9 Malignant melanoma of skin, unspecified
CPT/HCPCS: 36415; 36591; 80053; 85025; 96413

== ENCOUNTER → 2022-05-08 | Outpatient (CLI) | payer MEDICAID ==
[~2022-05-08] MED LIST changes: -HEParin (CENTRAL IV FLUSH) 500 UNIT/5 ML SYR IV PRN; -NS (IVPB) 250 ML IV SCH; -PEMBROLIZUMAB 200 MG in NS (IVPB) 50 ML IV SCH
--- NOTE | 2022-05-08 10:58 | Diagnostic Imaging Report ---
INDICATION: Baseline study. Patient has a diagnosis of melanoma. COMPARISON: No prior studies are available for comparison. TECHNIQUE: 2D and 3D bilateral screening mammography was performed with CAD. FINDINGS: Scattered fibroglandular densities are identified bilaterally. There are intraparenchymal lymph nodes in the upper outer aspects of both breasts. No spiculated mass or malignant-appearing microcalcifications are seen. The axillae are unremarkable apart from a chest wall port hub in the left axilla. IMPRESSION: No mammographic features suspicious for malignancy are identified. ACR BI-RADS Category 2: Benign findings. Result letter will be mailed to the patient. Note: At least 10% of breast cancer is not imaged by mammography. Dictated by: Dictated on workstation # [id number]
== END ==
LOC: RAD 09:15
PROVIDERS: ATTEND Family Medicine
DX: Z12.31 Encounter for screening mammogram for malignant neoplasm of breast (principal); Z85.3 Personal history of malignant neoplasm of breast
CPT/HCPCS: 77063; 77067

== ENCOUNTER 2022-05-17 08:54 | Outpatient (RCR) | payer MEDICAID ==
[~2022-05-17 08:54] MED LIST changes: +HEParin (CENTRAL IV FLUSH) 500 UNIT/5 ML SYR IV PRN; +NS (IVPB) 250 ML IV SCH; +PEMBROLIZUMAB 200 MG in NS (IVPB) 50 ML IV SCH
[2022-05-17 09:14] LABS: BASOPHILS # (AUTO) 0.1 10^3/uL (0.0-0.1); BASOPHILS % (AUTO) 1 % (0-10); EOSINOPHILS % (AUTO) 8 % (0-10); HEMATOCRIT 42 % (35-52); HEMOGLOBIN 14.4 g/dL (11.5-16.0); LYMPHOCYTES # (AUTO) 2.5 10^3/uL (1.0-4.0); LYMPHOCYTES % (AUTO) 21 % (12-44); MEAN CORPUSCULAR HEMOGLOBIN 29 pg (25-34); MEAN CORPUSCULAR HGB CONC 35 g/dL (32-36); MEAN CORPUSCULAR VOLUME 84 fL (80-99); MEAN PLATELET VOLUME 10.2 fL (9.0-12.2); MONOCYTES # (AUTO) 0.7 10^3/uL (0.0-1.0); MONOCYTES % (AUTO) 6 % (0-12); NEUTROPHILS # (AUTO) 7.6 10^3/uL (1.8-7.8); NEUTROPHILS % (AUTO) 64 % (42-75); PLATELET COUNT 291 10^3/uL (130-400)
[2022-05-17 09:38] LABS: ALBUMIN 4.1 GM/DL (3.2-4.5); BILIRUBIN,TOTAL 0.8 MG/DL (0.1-1.0); CALCIUM 9.4 MG/DL (8.5-10.1); CREATININE SERUM 0.87 MG/DL (0.60-1.30); POTASSIUM 3.8 MMOL/L (3.6-5.0); TOTAL PROTEIN 7.8 GM/DL (6.4-8.2)
[2022-05-22] MEDS ORDERED: PRD20T PO (14:06)
== END 2022-05-31 | disposition home or self-care (01) ==
LOC: ONC 08:54
PROVIDERS: ATTEND Internal Medicine Hematology & Oncology
DX: Z51.11 Encounter for antineoplastic chemotherapy (principal); Z45.2 Encounter for adjustment and management of vascular access device; C43.9 Malignant melanoma of skin, unspecified; L91.0 Hypertrophic scar; Z87.19 Personal history of other diseases of the digestive system
CPT/HCPCS: 36591; 80053; 85025; 96413

== ENCOUNTER 2022-05-22 09:23 | Emergency (ER) | payer MEDICAID ==
[~2022-05-22] VITALS: Ht 165.1 cm; Wt 108.4 kg
[~2022-05-22 09:23] MED LIST changes: -HEParin (CENTRAL IV FLUSH) 500 UNIT/5 ML SYR IV PRN; -NS (IVPB) 250 ML IV SCH; -PEMBROLIZUMAB 200 MG in NS (IVPB) 50 ML IV SCH
--- NOTE | 2022-05-22 10:14 | ED Respiratory ---
General Chief Complaint: Respiratory Problems Stated Complaint: TROUBLE BREATHING Nursing Triage Note: PT AMB TO RM 10 WITH . PT STATED THAT SHE HAS BEEN SOA FOR A COUPLE WEEKS AND HAS "GOTTEN WORSE OVER TIME". PT WAS PRESCRIBLED INHALERS BY PRIMARY PROVIDER BUT STATES THEY ARE NOT HELPING. Source: patient Exam Limitations: no limitations History of Present Illness Date Seen by Provider: May 22, 2022 Time Seen by Provider: 09:54 Initial Comments Patient to the ER by private conveyance with significant other chief complaint this is been having problems with shortness of breath going on since December. She feels like in the past few days it has progressively getting worse. She got a pulse oximeter and says that she lies in the low 90s while at rest and when she gets up and walks around it goes down into the mid 80s 85 to 87%. She does not require oxygen at baseline. She is being treated for stage II melanoma on Keytruda by Dr. Serna, oncology. She has brought this up to Dr. Hrerera who thought maybe she had some bronchitis and put her on a cephalosporin which she has been taking for the past 4 days. She feels like she is getting worse. She is not having any fevers or chills. She is not having nausea vomiting dysuria diarrhea or constipation. She does have a friend who had COVID but she thinks she has not been around them for the last week. Allergies and Home Medications Allergies Coded Allergies: No Known Drug Allergies (Unverified , 04/12/22) Patient Home Medication List Home Medication List Reviewed: Yes Escitalopram Oxalate (Escitalopram Oxalate) 20 Mg Tablet, 20 MG PO DAILY, (Reported) Entered as Reported by: MIRANDA KOLB on 08/15/21 1342 Hydrocodone Bit/Acetaminophen (HYDROcodone/APAP 5 MG/325 MG TAB) 1 Tab Tab, 1 TAB PO Q8H PRN for PAIN-MODERATE (5-7) Prescribed by: SANDRA HENDERSON on 04/18/22 1220 Loratadine (Loratadine) 10 Mg Tablet, 10 MG PO DAILY, (Reported) Entered as Reported by: MEKHI ZAPATA on 01/13/20 0511 Norgestimate-Ethinyl Estradiol (Tri-Sprintec Tablet) 1 Each Tablet, 1 EACH PO DAILY, (Reported) Entered as Reported by: MIRANDA KOLB on 08/15/21 1342 Omeprazole (Omeprazole) 20 Mg Capsule.dr, 20 MG PO, (Reported) Entered as Reported by: MIRANDAMONIKA KOLB on 11/07/21 1538 Prednisone (Prednisone) 20 Mg Tab, 60 MG PO BID Prescribed by: TRISTIAN NAJERA on 05/22/22 1406 Review of Systems Review of Systems Constitutional: No chills, No diaphoresis EENTM: No ear discharge, No ear pain Respiratory: cough; No hemoptysis; phlegm, short of breath Cardiovascular: chest pain; No edema, No Hx of Intervention Gastrointestinal: No abdominal pain, No constipation, No diarrhea, No dysphagia Genitourinary: No discharge, No dysuria Musculoskeletal: No back pain, No joint pain All Other Systems Reviewed Negative Unless Noted: Yes Past Luhsups-Jtyrgv-Ctkhcv Hx Patient Social History Tobacco Use?: No Smoking Status: Former Smoker Substance use?: Yes Substance type: Marijuana Substance frequency: Once in a while Alcohol Use?: No Pt feels they are or have been: Unable to obtain Immunizations Up To Date Tetanus Booster (TDap): Unknown PED Vaccines UTD: No Influenza Vaccine Up-to-Date: No; Not Current First/Initial COVID19 Vaccinat: MAY 2021 Second COVID19 Vaccination Christian: MAY 2021 Third COVID19 Vaccination Date: MAY 2021 Seasonal Allergies Seasonal Allergies: No Past Medical History Surgeries: Yes (left foot tumor removed, PORT) Adenoidectomy, Tonsillectomy Respiratory: No Currently Using CPAP: No Currently Using BIPAP: No Cardiac: No Neurological: Yes Headaches /Migraines Reproductive Disorders: No Genitourinary: No Gastrointestinal: Yes Gastroesophageal Reflux, Diverticulosis Musculoskeletal: No Endocrine: No HEENT: No Cancer: Yes Melanoma What Type of Treatment Did You: Surgical Intervention Psychosocial: Yes Depression Integumentary: Yes (MELANOMA FOOT) Recent Skin Changes Blood Disorders: Yes (ANEMIA) Adverse Reaction/Blood Tranf: No Family Medical History Degenerative back FH: congestive heart failure (Grandfather father's side) FH: diverticulitis (Father) FH: ovarian cancer (Great grandmother maternal side) FH: type 2 diabetes (Mother and father) Hypertension (Grandfather father's side) Physical Exam Vital Signs - First Documented 05/22/22 09:40 Pulse 101 Resp 16 B/P (MAP) 141/102 (115) Pulse Ox 93 O2 Delivery Room Air Capillary Refill : Less Than 3 Seconds Height: 5'5.00" Weight: 212lbs. 0.8oz. 96.341638rb; 39.00 BMI Method:Stated General Appearance: WD/WN, no apparent distress Eyes: Bilateral Eye Normal Inspection, Bilateral Eye PERRL, Bilateral Eye EOMI HEENT: PERRL/EOMI, normal ENT inspection, pharynx normal Neck: full range of motion, normal inspection Respiratory: No lungs clear, No normal breath sounds; no respiratory distress (Oxygen saturations 92 to 96% on room air.), no accessory muscle use, wheezing (Faint, bilateral expiratory wheezing.); No expiration (No prolonged expiration) Cardiovascular: normal peripheral pulses (Heart rate in the 90s), regular rate, rhythm Gastrointestinal: normal bowel sounds, non tender Extremities: normal inspection, normal capillary refill Neurologic/Psychiatric: alert, normal mood/affect, oriented x 3 Skin: normal color, warm/dry Progress/Results/Core Measures Suspected Sepsis SIRS Temperature: Pulse: 101 Respiratory Rate: 16 Laboratory Tests 05/22/22 10:40: White Blood Count 10.0 Blood Pressure 141 /102 Mean: 115 Laboratory Tests 05/22/22 10:40: Creatinine 0.75, Platelet Count 256, Total Bilirubin 0.3 Results/Orders Lab Results Laboratory Tests Test 05/22/22 10:37 05/22/22 10:40 05/22/22 11:15 Range/Units Bedside Blood Gas pH (LAB) 7.406 7.310-7.410 Bedside Blood Gas pCO2 (LAB) 34.4 L 41.0-51.0 mmHg Bedside Blood Gas pO2 (LAB) 80 80-105 mmHg Bedside Blood Gas HCO3 (LAB) 21.6 L 23.0-28.0 mmol/L POC Blood Gas Total CO2 Calc 23 L 24-29 mmol/L Bedside Bl Gas O2 Saturation (Calc) 96 95-98 % Bedside Arterial Blood Base Excess -3 L -2-3 mmol/L White Blood Count 10.0 4.3-11.0 10^3/uL Red Blood Count 4.58 3.80-5.11 10^6/uL Hemoglobin 13.4 11.5-16.0 g/dL Hematocrit 38 35-52 % Mean Corpuscular Volume 84 80-99 fL Mean Corpuscular Hemoglobin 29 25-34 pg Mean Corpuscular Hemoglobin Concent 35 32-36 g/dL Red Cell Distribution Width 12.8 10.0-14.5 % Platelet Count 256 130-400 10^3/uL Mean Platelet Volume 10.2 9.0-12.2 fL Immature Granulocyte % (Auto) 0 % Neutrophils (%) (Auto) 51 42-75 % Lymphocytes (%) (Auto) 21 12-44 % Monocytes (%) (Auto) 6 0-12 % Eosinophils (%) (Auto) 21 H 0-10 % Basophils (%) (Auto) 1 0-10 % Neutrophils # (Auto) 5.1 1.8-7.8 10^3/uL Lymphocytes # (Auto) 2.1 1.0-4.0 10^3/uL Monocytes # (Auto) 0.6 0.0-1.0 10^3/uL Eosinophils # (Auto) 2.1 H 0.0-0.3 10^3/uL Basophils # (Auto) 0.1 0.0-0.1 10^3/uL Immature Granulocyte # (Auto) 0.0 0.0-0.1 10^3/uL Neutrophils % (Manual) 50 % Lymphocytes % (Manual) 21 % Monocytes % (Manual) 3 % Eosinophils % (Manual) 23 % Basophils % (Manual) 2 % Atypical Lymphocytes 1 % Blood Morphology Comment NORMAL D-Dimer 0.60 H 0.00-0.49 UG/ML Sodium Level 140 135-145 MMOL/L Potassium Level 3.8 3.6-5.0 MMOL/L Chloride Level 107 98-107 MMOL/L Carbon Dioxide Level 23 21-32 MMOL/L Anion Gap 10 5-14 MMOL/L Blood Urea Nitrogen 6 L 7-18 MG/DL Creatinine 0.75 0.60-1.30 MG/DL Estimat Glomerular Filtration Rate 113 BUN/Creatinine Ratio 8 Glucose Level 109 H 70-105 MG/DL Calcium Level 9.0 8.5-10.1 MG/DL Corrected Calcium 9.3 8.5-10.1 MG/DL Total Bilirubin 0.3 0.1-1.0 MG/DL Aspartate Amino Transf (AST/SGOT) 19 5-34 U/L Alanine Aminotransferase (ALT/SGPT) 29 0-55 U/L Alkaline Phosphatase 100 40-136 U/L C-Reactive Protein High Sensitivity 1.89 H 0.00-0.50 MG/DL B-Type Natriuretic Peptide 21.3 <100.0 PG/ML Total Protein 7.2 6.4-8.2 GM/DL Albumin 3.6 3.2-4.5 GM/DL Influenza Type A (RT-PCR) Not Detected Not Detecte Influenza Type B (RT-PCR) Not Detected Not Detecte SARS-CoV-2 RNA (RT-PCR) Not Detected Not Detecte My Orders Orders - TRISTIAN NAJERA Chest Pa/Lat (2 View) (05/22/22 10:08) Cbc With Automated Diff (05/22/22 10:08) Hs C Reactive Protein (05/22/22 10:08) Comprehensive Metabolic Panel (05/22/22 10:08) Bnp Prince (05/22/22 10:08) Covid 19 Inhouse Test (05/22/22 10:08) Influenza A And B By Pcr (05/22/22 10:08) Albuterol/Ipra Inhalation Soln (Duoneb I (05/22/22 10:15) Fibrin Degradation Products (05/22/22 10:31) Manual Differential (05/22/22 10:40) Ct Angio Chest W (05/22/22 11:39) Ed Iv/Invasive Line Start (05/22/22 11:39) Lactated Ringers (Lr 1000 Ml Iv Solution (05/22/22 11:45) Iohexol Injection (Omnipaque 350 Mg/Ml 1 (05/22/22 12:15) Received Contrast (Hold Metformin- Contr (05/22/22 12:15) Sodium Chloride Flush (Catheter Flush Sy (05/22/22 12:15) Ns (Ivpb) (Sodium Chloride 0.9% Ivpb Bag (05/22/22 12:15) Methylprednisolone Sod Succ (Solu-Medrol (05/22/22 14:15) Medications Given in ED Current Medications Medications Dose Ordered Sig/Gasper Route Start Time Stop Time Status Last Admin Dose Admin Albuterol/ Ipratropium 3 ml ONCE ONCE INH 05/22/22 10:15 05/22/22 10:16 DC 05/22/22 10:27 3 ML Iohexol 100 ml ONCE ONCE IV 05/22/22 12:15 05/22/22 12:16 DC 05/22/22 12:19 84 ML Lactated Ringer's 1,000 ml @ 0 mls/hr Q0M ONCE IV 05/22/22 11:45 05/22/22 11:46 DC 05/22/22 11:55 1,000 MLS/HR Methylprednisolone Sodium Succinate 125 mg ONCE ONCE IVP 05/22/22 14:15 05/22/22 14:16 DC 05/22/22 14:18 125 MG Sodium Chloride 10 ml NEEDED PRN IV 05/22/22 12:15 05/22/22 14:27 DC 05/22/22 12:20 10 ML Sodium Chloride 100 ml ONCE ONCE IV 05/22/22 12:15 05/22/22 12:16 DC 05/22/22 12:19 80 ML Vital Signs/I&O 05/22/22 05/22/22 05/22/22 09:40 10:30 14:23 Pulse 101 85 Resp 16 14 B/P (MAP) 141/102 (115) 133/74 Pulse Ox 93 93 96 O2 Delivery Room Air Room Air Room Air Capillary Refill : Less Than 3 Seconds Blood Pressure Mean: 115 Progress Note #1: Time: 10:18 Progress Note Progressively worsening dyspnea. We will get an ABG give her a DuoNeb that she has some wheezes heard bilaterally. We will get chest x-ray, swab her for COVID and flu and check some labs looking for signs of pneumonia versus bronchitis. Vital signs are okay at this time, heart rate in the 90s, oxygen saturation in the low to mid 90s: 93 to 95%. Progress Note #2: Time: 13:44 Progress Note Discussed the case with Dr. Serna, oncology. He is concerned that she is developing a pneumonitis related to her Keytruda. He would like her to follow- up with him at her scheduled clinic appointment and start high-dose steroids. 1 mg/kg prednisone. Plan to give her Solu-Medrol 125 mg IV today. Oxygen saturations have been 92 to 99%, nonlabored breathing. Patient seems to respond well to the DuoNeb nebulizer so we will offer her an opportunity to get a nebulizer. Diagnostic Imaging Diagonstic Imaging: Xray Plain Films/CT/US/NM/MRI: chest Comments [facility]. [place], [place] NAME: MEKHI CARPENTER [facility] REC#: [id number] PT STATUS: REG ER : 1995 PHYSICIAN: TRISTIAN NAJERA MD ADMIT DATE: 05/22/22/ER Draft Date of Exam:05/22/22 CHEST PA/LAT (2 VIEW) Clinical indication: Patient has been having shortness of air for couple of weeks and has gotten worse over time. EXAM: Chest x-ray PA and lateral views. COMPARISON: Chest x-ray dated 12/14/2021. FINDINGS: Interval placement of Xilfxi-E-Vwat overlying left chest with distal portion in the high right atrium. Lungs/pleura: There is interval development of lung infiltrate involving the middle lobe and possibly right upper lobe region which is seen anteriorly on the lateral view. The remainder of the lungs are clear. There is no pneumothorax. There is no pleural effusion. Mediastinum: Unremarkable. Pulmonary vasculature: Unremarkable. Heart: Unremarkable. Bones/extrathoracic soft tissue: Unremarkable. IMPRESSION: Interval development of minimal lobe and possibly right upper lobe infiltrate concerning for pneumonia. Dictated on workstation # [id number] Dict: 05/22/22 1209 Trans: 05/22/22 [facility]5 [id number] Interpreted by: KARLIE MUÑOZ MD Electronically signed by: Reviewed: Reviewed by Pa Diagonstic Imaging: CT Plain Films/CT/US/NM/MRI: chest Comments [facility] [place] NAME: MEKHI CARPENTER [facility] REC#: [id number] PT STATUS: REG ER : 1995 PHYSICIAN: TRISTIAN NAJERA MD ADMIT DATE: 05/22/22/ER Draft Date of Exam:05/22/22 CT ANGIO CHEST W PROCEDURE: CT angiography of the chest with contrast. TECHNIQUE: Multiple contiguous axial images were obtained through the chest after uneventful bolus administration of intravenous contrast. 3D reconstructed CTA MIP acquisitions were also performed. Auto Exposure Controls were utilized during the CT exam to meet ALARA standards for radiation dose reduction. INDICATION: Shortness of air. COMPARISON: 03/15/2022 FINDINGS: No abnormal intraluminal filling defect is seen within the pulmonary arteries to the 1st subsegmental division. Thoracic aorta is normal in course and caliber. By NASCET criteria, there is no focal significant stenosis. There is no evidence of dissection or aneurysm. Heart size is within normal limits. There is no large pericardial effusion. Multiple enlarged mediastinal and bilateral hilar lymph nodes are identified. Largest hilar lymph node is identified on the right and measures 1.3 x 1.8 cm. Largest mediastinal lymph node is paratracheal anterosuperiorly to the right lateral midline and measures 1.6 x 1.3 cm. Similar appearance is noted previously. Evaluation of lung infante demonstrates interval development of multiple scattered patchy areas of irregular groundglass density, greatest anteriorly and within the mid and upper lung infante. These are new since previous CT dated 03/15/2022. Right middle lobe micronodule is identified and measures 5 mm in diameter. This is stable compared to prior exam. A few other nodular subcentimeter densities are also noted scattered about. There is no large effusion or pneumothorax. Osseous structures show no acute abnormalities. Included portions of the upper abdomen show hepatic steatosis. IMPRESSION: 1. No acute pulmonary embolus. 2. Interval development of scattered patchy groundglass densities throughout both lungs. Correlation for atypical or viral pneumonia is advised. Covid-19 may present in this manner. Note is made of clinical history of melanoma. Metastatic disease/lymphangitic carcinomatosis is a consideration, but felt to be less likely. 3. Several micronodular densities are also noted and may be related to the above stated processes. Continued follow-up is recommended. 4. Hepatic steatosis. 5. Multiple mildly enlarged hilar and mediastinal lymph nodes. These may be reactive as well, but metastatic adenopathy is not excluded. Dictated on workstation # [id number] Dict: 05/22/22 1234 Trans: 05/22/22 1254 [id number] Interpreted by: EVAN ENRIQUEZ MD Electronically signed by: Reviewed: Reviewed by Me Departure Impression Primary Impression: Pneumonitis Additional Impression: History of asthma Disposition: 01 HOME, SELF-CARE Condition: Stable Departure-Patient Inst. Decision time for Depature: 13:57 Referrals: BLANCO SERNA MD, DANIEL J MD (PCP/Family) Primary Care Physician Patient Instructions: Pneumonitis (DC) Add. Discharge Instructions: You have inflammation of the lungs noted on the CT which should be treated with steroids. Start prednisone, 2 tablets in the morning and 1 tablet at night until you see your oncologist in the next week or two. Call for an appointment. If at any point you are having severe shortness of air that has not improved with the inhalers, or other worrisome symptoms such as oxygen saturations below 90% while at rest then I encourage you to return to the nearest ER for immediate evaluation. All discharge instructions reviewed with patient and/or family. Voiced understanding. Take the prednisone on the following schedule: Take 3 tabs(60mg) 2x a day for 10 days. Then take 3 tabs(60mg) daily for 4 days. Finally take 1 tab(20mg) daily for 4 days. Scripts Prednisone (Prednisone) 20 Mg Tab 60 MG PO BID for 18 Days, #76 TAB 0 Refills Take 3 tabs(60mg) 2x a day for 10 days. Then take 3 tabs(60mg) daily for 4 days. Finally take 1 tab(20mg) daily for 4 days. Prov: TRISTIAN NAJERA 05/22/22 Work/School Note: Work Release Form Date Seen in the Emergency Department: May 22, 2022 Return to Work: May 31, 2022 Restrictions: No Restrictions Copy Copies To 1: BLANCO SERNA MD; LEONARDO HERRERA MD, TITUS J May 22, 2022 10:14
[2022-05-22] MEDS ORDERED: RT-ALBUTEROL/IPRATROPIUM 3 ML (DUONEB) VIAL INH ONE (10:15)
[2022-05-22 10:49] LABS: BASOPHILS # (AUTO) 0.1 10^3/uL (0.0-0.1); BASOPHILS % (AUTO) 1 % (0-10); EOSINOPHILS # (AUTO) 2.1 10^3/uL (0.0-0.3); EOSINOPHILS % (AUTO) 21 % (0-10); HEMATOCRIT 38 % (35-52); HEMOGLOBIN 13.4 g/dL (11.5-16.0); LYMPHOCYTES # (AUTO) 2.1 10^3/uL (1.0-4.0); LYMPHOCYTES % (AUTO) 21 % (12-44); MEAN CORPUSCULAR HEMOGLOBIN 29 pg (25-34); MEAN CORPUSCULAR HGB CONC 35 g/dL (32-36); MEAN CORPUSCULAR VOLUME 84 fL (80-99); MEAN PLATELET VOLUME 10.2 fL (9.0-12.2); MONOCYTES # (AUTO) 0.6 10^3/uL (0.0-1.0); MONOCYTES % (AUTO) 6 % (0-12); NEUTROPHILS # (AUTO) 5.1 10^3/uL (1.8-7.8); NEUTROPHILS % (AUTO) 51 % (42-75); PLATELET COUNT 256 10^3/uL (130-400)
[2022-05-22 11:02] LABS: ALBUMIN 3.6 GM/DL (3.2-4.5); POTASSIUM 3.8 MMOL/L (3.6-5.0)
[2022-05-22 11:05] LABS: TOTAL PROTEIN 7.2 GM/DL (6.4-8.2)
[2022-05-22 11:07] LABS: BILIRUBIN,TOTAL 0.3 MG/DL (0.1-1.0)
[2022-05-22 11:09] LABS: CREATININE SERUM 0.75 MG/DL (0.60-1.30)
[2022-05-22 11:32] LABS: ATYPICAL LYMPHOCYTES 1 %; BASOPHILS % (MANUAL) 2 %; EOSINOPHILS % (MANUAL) 23 %; LYMPHOCYTES % (MANUAL) 21 %; MONOCYTES % (MANUAL) 3 %; NEUTROPHILS % (MANUAL) 50 %; RBC MORPH NORMAL
[2022-05-22] MEDS ORDERED: LACTATED RINGERS 1,000 ML IV ONE (11:45)
[2022-05-22] MEDS ORDERED: HOLD METFORMIN - RECEIVED CONTRAST 20 ML VIAL IV SCH (12:15)
[2022-05-22] MEDS ORDERED: IOHEXOL 350 MG/ML 100 ML (OMNIPAQUE 350) VIAL IV ONE (12:15)
[2022-05-22] MEDS ORDERED: CATHETER FLUSH 10 ML SYR IV PRN (12:15)
[2022-05-22] MEDS ORDERED: NS 100 ML (IVPB) BAG IV ONE (12:15)
--- NOTE | 2022-05-22 12:15 | Diagnostic Imaging Report ---
Clinical indication: Patient has been having shortness of air for couple of weeks and has gotten worse over time. EXAM: Chest x-ray PA and lateral views. COMPARISON: Chest x-ray dated 12/14/2021. FINDINGS: Interval placement of Mfxedi-D-Dmnc overlying left chest with distal portion in the high right atrium. Lungs/pleura: There is interval development of lung infiltrate involving the middle lobe and possibly right upper lobe region which is seen anteriorly on the lateral view. The remainder of the lungs are clear. There is no pneumothorax. There is no pleural effusion. Mediastinum: Unremarkable. Pulmonary vasculature: Unremarkable. Heart: Unremarkable. Bones/extrathoracic soft tissue: Unremarkable. IMPRESSION: Interval development of minimal lobe and possibly right upper lobe infiltrate concerning for pneumonia. Dictated by: Dictated on workstation # [id number]
--- NOTE | 2022-05-22 12:54 | Diagnostic Imaging Report ---
PROCEDURE: CT angiography of the chest with contrast. TECHNIQUE: Multiple contiguous axial images were obtained through the chest after uneventful bolus administration of intravenous contrast. 3D reconstructed CTA MIP acquisitions were also performed. Auto Exposure Controls were utilized during the CT exam to meet ALARA standards for radiation dose reduction. INDICATION: Shortness of air. COMPARISON: 03/15/2022 FINDINGS: No abnormal intraluminal filling defect is seen within the pulmonary arteries to the 1st subsegmental division. Thoracic aorta is normal in course and caliber. By NASCET criteria, there is no focal significant stenosis. There is no evidence of dissection or aneurysm. Heart size is within normal limits. There is no large pericardial effusion. Multiple enlarged mediastinal and bilateral hilar lymph nodes are identified. Largest hilar lymph node is identified on the right and measures 1.3 x 1.8 cm. Largest mediastinal lymph node is paratracheal anterosuperiorly to the right lateral midline and measures 1.6 x 1.3 cm. Similar appearance is noted previously. Evaluation of lung infante demonstrates interval development of multiple scattered patchy areas of irregular groundglass density, greatest anteriorly and within the mid and upper lung infante. These are new since previous CT dated 03/15/2022. Right middle lobe micronodule is identified and measures 5 mm in diameter. This is stable compared to prior exam. A few other nodular subcentimeter densities are also noted scattered about. There is no large effusion or pneumothorax. Osseous structures show no acute abnormalities. Included portions of the upper abdomen show hepatic steatosis. IMPRESSION: 1. No acute pulmonary embolus. 2. Interval development of scattered patchy groundglass densities throughout both lungs. Correlation for atypical or viral pneumonia is advised. Covid-19 may present in this manner. Note is made of clinical history of melanoma. Metastatic disease/lymphangitic carcinomatosis is a consideration, but felt to be less likely. 3. Several micronodular densities are also noted and may be related to the above stated processes. Continued follow-up is recommended. 4. Hepatic steatosis. 5. Multiple mildly enlarged hilar and mediastinal lymph nodes. These may be reactive as well, but metastatic adenopathy is not excluded. Dictated by: Dictated on workstation # [id number]
[2022-05-22] MEDS ORDERED: PRD20T PO (14:06)
[2022-05-22] MEDS ORDERED: methylPREDNISolone 125 MG (Solu-MEDROL) VIAL IVP ONE (14:15)
[2022-05-22 14:23] VITALS: BP 133/74
== END 2022-05-22 14:23 | disposition home or self-care (01) ==
LOC: EDUNIT# 09:23 → ER 09:27
DX: J18.9 Pneumonia, unspecified organism (principal); Z87.891 Personal history of nicotine dependence; Z20.822 Contact with and (suspected) exposure to COVID-19
CPT/HCPCS: 36415; 71046; 71275; 80053; 82805; 83880; 85007; 85027; 85379; 86141; 87636; 94640

== ENCOUNTER 2022-05-30 16:17 | Emergency (ER) | payer MEDICAID ==
[~2022-05-30] VITALS: Ht 165 cm; Wt 104.0 kg
[~2022-05-30 16:17] MED LIST changes: +PRD20T PO
[2022-05-30 16:20] VITALS: BP 140/112
--- NOTE | 2022-05-30 16:43 | ED Lower Extremity ---
General Chief Complaint: Lower Extremity Stated Complaint: LEG PAIN Nursing Triage Note: BILAT KNEE PAIN STARTING THIS AM. NON INJURY. HX OF MEANOMA LEFT FOOT THAT SHE GETS INFUSIONS FOR [id number]. Source: patient History of Present Illness Date Seen by Provider: May 30, 2022 Time Seen by Provider: 16:28 Initial Comments 26-year-old female with history of melanoma on Keytruda presents to the emergency department today for bilateral knee pain. She tells me she has been battling joint pains since she was started on Keytruda and thinks it may be a side effect. She denies any injury. No vaginal symptoms. No new activities or overuse. She took hydrocodone at home as well as ibuprofen without much relief. Pain is described as dull throbbing without radiation. Aggravated by weightbearing relieved somewhat by rest but present even at baseline. No fevers chills nausea vomiting. No abdominal pain or change in bowel habits Allergies and Home Medications Allergies Coded Allergies: No Known Drug Allergies (Unverified , 04/12/22) Patient Home Medication List Home Medication List Reviewed: Yes Escitalopram Oxalate (Escitalopram Oxalate) 20 Mg Tablet, 20 MG PO DAILY, (Reported) Entered as Reported by: MIRANDA KOLB on 08/15/21 1342 Hydrocodone Bit/Acetaminophen (HYDROcodone/APAP 5 MG/325 MG TAB) 1 Tab Tab, 1 TAB PO Q8H PRN for PAIN-MODERATE (5-7) Prescribed by: SANDRA HENDERSON on 04/18/22 1220 Loratadine (Loratadine) 10 Mg Tablet, 10 MG PO DAILY, (Reported) Entered as Reported by: MEKHI ZAPATA on 01/13/20 0511 Norgestimate-Ethinyl Estradiol (Tri-Sprintec Tablet) 1 Each Tablet, 1 EACH PO DAILY, (Reported) Entered as Reported by: MIRANDA KOLB on 08/15/21 1342 Omeprazole (Omeprazole) 20 Mg Capsule.dr, 20 MG PO, (Reported) Entered as Reported by: MIRANDA KOLB on 11/07/21 1538 Prednisone (Prednisone) 20 Mg Tab, 60 MG PO BID Prescribed by: TRISTIAN NAJERA on 05/22/22 1406 Review of Systems Constitutional: no symptoms reported EENTM: no symptoms reported Respiratory: no symptoms reported Cardiovascular: no symptoms reported Gastrointestinal: no symptoms reported Genitourinary: no symptoms reported Musculoskeletal: joint pain Skin: no symptoms reported Psychiatric/Neurological: No Symptoms Reported Past Hsyszvz-Rbslyb-Fvkjke Hx Patient Social History Tobacco Use?: Yes Use of E-Cig and/or Vaping dev: Yes Substance use?: Yes Substance type: Marijuana Alcohol Use?: No Immunizations Up To Date Tetanus Booster (TDap): Unknown PED Vaccines UTD: No First/Initial COVID19 Vaccinat: UNKNOWN DATE Second COVID19 Vaccination Christian: MAY 2021 Third COVID19 Vaccination Date: MAY 2021 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[employer] Seasonal Allergies Seasonal Allergies: No Past Medical History Surgeries: Yes (left foot tumor removed, [facility]) Adenoidectomy, Tonsillectomy Respiratory: No Currently Using CPAP: No Currently Using BIPAP: No Cardiac: No Neurological: Yes Headaches /Migraines Reproductive Disorders: No Genitourinary: No Gastrointestinal: Yes Gastroesophageal Reflux, Diverticulosis Musculoskeletal: No Endocrine: No HEENT: No Cancer: Yes Melanoma What Type of Treatment Did You: Surgical Intervention Psychosocial: Yes Depression Integumentary: Yes (MELANOMA FOOT) Recent Skin Changes Blood Disorders: Yes (ANEMIA) Adverse Reaction/Blood Tranf: No Family Medical History Reviewed Nursing Family Hx Degenerative back FH: congestive heart failure (Grandfather father's side) FH: diverticulitis (Father) FH: ovarian cancer (Great grandmother maternal side) FH: type 2 diabetes (Mother and father) Hypertension (Grandfather father's side) No Pertinent Family Hx Physical Exam Vital Signs Vital Signs - First Documented 05/30/22 16:20 Temp 36.0 Pulse 113 Resp 16 B/P (MAP) 140/112 (121) Pulse Ox 93 O2 Delivery Room Air Capillary Refill : Less Than 3 Seconds Height, Weight, BMI Height: 5'5.00" Weight: 212lbs. 0.8oz. 96.104546ty; 38.00 BMI Method:Stated General Appearance: WD/WN, no apparent distress HEENT: normal ENT inspection, TMs normal, pharynx normal Neck: non-tender, full range of motion, supple, normal inspection Cardiovascular: regular rate, rhythm, no edema, no gallop, no JVD, no murmur Respiratory: chest non-tender, lungs clear, normal breath sounds, no respiratory distress, no accessory muscle use Gastrointestinal: normal bowel sounds, non tender, soft, no organomegaly, no pulsatile mass Back: normal inspection, no CVA tenderness, no vertebral tenderness Hips: bilateral hip non-tender, bilateral hip normal inspection, bilateral hip normal range of motion, bilateral hip no evidence of injury, bilateral hip bone tenderness, bilateral hip deformity, bilateral hip ecchymosis, bilateral hip limited range of motion, bilateral hip nodules, bilateral hip pain, bilateral hip soft tissue tenderness, bilateral hip swelling, bilateral hip other Legs: bilateral leg non-tender, bilateral leg normal inspection, bilateral leg normal range of motion, bilateral leg no evidence of injury, bilateral leg abrasions, bilateral leg bone tenderness, bilateral leg deformity, bilateral leg ecchymosis, bilateral leg joint effusion, bilateral leg limited range of motion, bilateral leg nodules, bilateral leg pain, bilateral leg soft tissue tenderness, bilateral leg swelling, bilateral leg other Knees: bilateral knee other (Tenderness palpation bilateral knees. No swelling or deformity. Joint overall stable bilaterally. Neurovascular motor and sensory intact.) Ankles: bilateral ankle non-tender, bilateral ankle normal inspection, bilateral ankle normal range of motion, bilateral ankle no evidence of injury, bilateral ankle abrasions/lacerations, bilateral ankle bone tenderness, bilateral ankle deformity, bilateral ankle ecchymosis, bilateral ankle joint effusion, bilateral ankle limited range of motion, bilateral ankle nodules, bilateral ankle pain, bilateral ankle soft tissue tenderness, bilateral ankle swelling, bilateral ankle other Feet: bilateral foot non-tender, bilateral foot normal inspection, bilateral foot normal range of motion, bilateral foot no evidence of injury, bilateral foot abrasions/lacerations, bilateral foot bone tenderness, bilateral foot deformity, bilateral foot ecchymosis, bilateral foot infection, bilateral foot limited range of motion, bilateral foot nail injury, bilateral foot nodule, bilateral foot pain, bilateral foot soft tissue tenderness, bilateral foot swelling, bilateral foot other Neurologic/Tendon: normal sensation, normal motor functions, normal tendon functions Neurologic/Psychiatric: no motor/sensory deficits, alert, normal mood/affect, oriented x 3 Progress/Results/Core Measures Results/Orders My Orders Orders - PRISCILLAKT Lopez DO Ketorolac Injection (Toradol Injection) (05/30/22 16:45) Oxycodone/Apap 7.5/325mg Tab (Percocet (05/30/22 16:45) Medications Given in ED Current Medications Medications Dose Ordered Sig/Gasper Route Start Time Stop Time Status Last Admin Dose Admin Ketorolac Tromethamine 30 mg ONCE ONCE IM 05/30/22 16:45 05/30/22 16:46 DC 05/30/22 16:47 30 MG Oxycodone/ Acetaminophen 1 each ONCE ONCE PO 05/30/22 16:45 05/30/22 16:46 DC 05/30/22 16:53 1 EACH Vital Signs/I&O 05/30/22 16:20 Temp 36.0 Pulse 113 Resp 16 B/P (MAP) 140/112 (121) Pulse Ox 93 O2 Delivery Room Air Blood Pressure Mean: 121 Departure Communication (Admissions) Patient is hemodynamically stable. Non- Injury pain to bilateral knees. Normal exam. No indication for imaging at this time. Treated supportively and discharged in stable condition. Impression Primary Impression: Bilateral knee pain Qualified Codes: M25.561 - Pain in right knee; M25.562 - Pain in left knee Disposition: 01 HOME, SELF-CARE Condition: Stable Departure-Patient Inst. Referrals: LEONARDO HERRERA MD (PCP/Family) Primary Care Physician Add. Discharge Instructions: Continue home medications as previously prescribed. Return to the emergency department for any severe concerns. Follow 48 to 72 hours should your symptoms persist. All discharge instructions reviewed with patient and/or family. Voiced understanding. KT WELLS DO May 30, 2022 16:43
[2022-05-30] MEDS ORDERED: KETOROLAC 60 MG/2 ML VIAL IM ONE (16:45)
[2022-05-30] MEDS ORDERED: oxyCODONE/APAP 7.5-325 MG (PERCOCET 7.5) TABLET PO ONE (16:45)
== END 2022-05-30 17:30 | disposition home or self-care (01) ==
LOC: EDUNIT# 16:17 → ER 16:19
DX: M25.561 Pain in right knee (principal); M25.562 Pain in left knee
CPT/HCPCS: 99284

== ENCOUNTER 2022-06-07 08:56 | Outpatient (RCR) | payer MEDICAID ==
[~2022-06-07 08:56] MED LIST changes: +HEParin (CENTRAL IV FLUSH) 500 UNIT/5 ML SYR IV PRN; +NS (IVPB) 250 ML IV SCH; +PEMBROLIZUMAB 200 MG in NS (IVPB) 50 ML IV SCH
== END 2022-06-12 15:09 | disposition home or self-care (01) ==
LOC: ONC 08:56
PROVIDERS: ATTEND Internal Medicine Hematology & Oncology
DX: C43.9 Malignant melanoma of skin, unspecified (principal)
CPT/HCPCS: 99213

== ENCOUNTER → 2022-06-08 | Outpatient (CLI) | payer MEDICAID ==
[~2022-06-08] MED LIST changes: +CATHETER FLUSH 10 ML SYR IV PRN; -HEParin (CENTRAL IV FLUSH) 500 UNIT/5 ML SYR IV PRN; +HOLD METFORMIN - RECEIVED CONTRAST 20 ML VIAL IV SCH; +IOHEXOL 350 MG/ML 100 ML (OMNIPAQUE 350) VIAL IV ONE; -NS (IVPB) 250 ML IV SCH; +NS 100 ML (IVPB) BAG IV ONE; -PEMBROLIZUMAB 200 MG in NS (IVPB) 50 ML IV SCH
--- NOTE | 2022-06-08 10:12 | Diagnostic Imaging Report ---
EXAMINATION: CT chest, abdomen and pelvis with intravenous contrast. TECHNIQUE: Multiple contiguous axial images were obtained through the chest, abdomen and pelvis after the uneventful administration of intravenous contrast. All CT scans use one or more of the following dose optimizing techniques: automated exposure control, MA and/or KvP adjustment based on patient size and exam type or iterative reconstruction. HISTORY: MALIGNANT MELANOMA COMPARISON: 05/22/2022 FINDINGS: Thyroid: The visualized thyroid gland is normal. Mediastinum: Heart size is normal without significant pericardial effusion. The aorta is normal in caliber. No suspicious lymphadenopathy. Lungs and airways: There are patchy groundglass opacities seen throughout both lungs, slightly decreased from 05/22/2022. No suspicious pulmonary nodule. The airways are normal. Solid organs: The liver is normal without focal lesion. The gallbladder is normal. There is no biliary ductal dilation. Pancreas is normal. Spleen is normal. Adrenal glands are normal. The kidneys are normal without hydronephrosis. Bowel: The stomach and small bowel are normal without obstruction. There is scattered colonic diverticulosis. The appendix is normal. Peritoneum: There is no intraperitoneal free fluid or free air. No suspicious lymphadenopathy. Vasculature: Normal without aneurysm. Musculoskeletal: There are bilateral L5 pars defects. No suspicious osseous lesion or compression fracture. No suspicious soft tissue lesion. Pelvis: The uterus and adnexa are normal. The urinary bladder is normal. IMPRESSION: 1. No findings of metastatic disease within the chest, abdomen, or pelvis. 2. Decreased groundglass opacities within the lungs compared to 05/22/2022. Dictated by: Dictated on workstation # [id number]
== END ==
LOC: RAD 09:27
PROVIDERS: ATTEND Internal Medicine Hematology & Oncology
DX: C43.9 Malignant melanoma of skin, unspecified (principal)
CPT/HCPCS: 71260; 74177

== ENCOUNTER 2022-06-14 08:53 | Outpatient (RCR) | payer MEDICAID ==
[~2022-06-14 08:53] MED LIST changes: -CATHETER FLUSH 10 ML SYR IV PRN; +HEParin (CENTRAL IV FLUSH) 500 UNIT/5 ML SYR IV PRN; -HOLD METFORMIN - RECEIVED CONTRAST 20 ML VIAL IV SCH; -IOHEXOL 350 MG/ML 100 ML (OMNIPAQUE 350) VIAL IV ONE; +NS (IVPB) 250 ML IV SCH; -NS 100 ML (IVPB) BAG IV ONE; +PEMBROLIZUMAB 200 MG in NS (IVPB) 50 ML IV SCH
[2022-06-14 09:15] LABS: BASOPHILS % (AUTO) 0 % (0-10); EOSINOPHILS # (AUTO) 0.4 10^3/uL (0.0-0.3); EOSINOPHILS % (AUTO) 4 % (0-10); HEMATOCRIT 43 % (35-52); HEMOGLOBIN 14.1 g/dL (11.5-16.0); LYMPHOCYTES # (AUTO) 3.2 10^3/uL (1.0-4.0); LYMPHOCYTES % (AUTO) 28 % (12-44); MEAN CORPUSCULAR HEMOGLOBIN 29 pg (25-34); MEAN CORPUSCULAR HGB CONC 33 g/dL (32-36); MEAN CORPUSCULAR VOLUME 87 fL (80-99); MEAN PLATELET VOLUME 9.6 fL (9.0-12.2); MONOCYTES # (AUTO) 0.6 10^3/uL (0.0-1.0); MONOCYTES % (AUTO) 5 % (0-12); NEUTROPHILS % (AUTO) 62 % (42-75); PLATELET COUNT 218 10^3/uL (130-400); WHITE BLOOD COUNT 11.3 10^3/uL (4.3-11.0)
[2022-06-14 09:36] LABS: ALBUMIN 3.7 GM/DL (3.2-4.5); BILIRUBIN,TOTAL 0.5 MG/DL (0.1-1.0); CALCIUM 8.7 MG/DL (8.5-10.1); CREATININE SERUM 0.75 MG/DL (0.60-1.30); POTASSIUM 3.8 MMOL/L (3.6-5.0); TOTAL PROTEIN 6.5 GM/DL (6.4-8.2)
== END 2022-06-19 14:36 | disposition home or self-care (01) ==
LOC: ONC 08:53
PROVIDERS: ATTEND Internal Medicine Hematology & Oncology
DX: Z51.11 Encounter for antineoplastic chemotherapy (principal); Z45.2 Encounter for adjustment and management of vascular access device; C43.9 Malignant melanoma of skin, unspecified
CPT/HCPCS: 36591; 80053; 85025; 96413

== ENCOUNTER 2022-06-28 08:54 | Outpatient (RCR) | payer MEDICAID ==
[~2022-06-28 08:54] MED LIST changes: -HEParin (CENTRAL IV FLUSH) 500 UNIT/5 ML SYR IV PRN; -NS (IVPB) 250 ML IV SCH; -PEMBROLIZUMAB 200 MG in NS (IVPB) 50 ML IV SCH
== END 2022-06-29 09:06 | disposition still patient (30) ==
LOC: ONC 08:54
PROVIDERS: ATTEND Internal Medicine Hematology & Oncology
DX: C43.9 Malignant melanoma of skin, unspecified (principal)
CPT/HCPCS: 99213

== ENCOUNTER 2022-07-26 09:17 | Outpatient (RCR) | payer MEDICAID ==
[2022-07-05 13:14] LABS: BASOPHILS # (AUTO) 0.1 10^3/uL (0.0-0.1); BASOPHILS % (AUTO) 1 % (0-10); EOSINOPHILS # (AUTO) 0.8 10^3/uL (0.0-0.3); EOSINOPHILS % (AUTO) 12 % (0-10); HEMATOCRIT 36 % (35-52); HEMOGLOBIN 12.4 g/dL (11.5-16.0); LYMPHOCYTES # (AUTO) 2.3 10^3/uL (1.0-4.0); LYMPHOCYTES % (AUTO) 33 % (12-44); MEAN CORPUSCULAR HEMOGLOBIN 30 pg (25-34); MEAN CORPUSCULAR HGB CONC 34 g/dL (32-36); MEAN CORPUSCULAR VOLUME 86 fL (80-99); MEAN PLATELET VOLUME 9.7 fL (9.0-12.2); MONOCYTES # (AUTO) 0.4 10^3/uL (0.0-1.0); MONOCYTES % (AUTO) 6 % (0-12); NEUTROPHILS # (AUTO) 3.3 10^3/uL (1.8-7.8); NEUTROPHILS % (AUTO) 48 % (42-75); PLATELET COUNT 299 10^3/uL (130-400); WHITE BLOOD COUNT 6.9 10^3/uL (4.3-11.0)
[2022-07-05 13:34] LABS: ALBUMIN 3.6 GM/DL (3.2-4.5); BILIRUBIN,TOTAL 0.5 MG/DL (0.1-1.0); CALCIUM 8.7 MG/DL (8.5-10.1); CREATININE SERUM 0.76 MG/DL (0.60-1.30); TOTAL PROTEIN 6.6 GM/DL (6.4-8.2)
[~2022-07-26 09:17] MED LIST changes: +HEParin (CENTRAL IV FLUSH) 500 UNIT/5 ML SYR IV PRN; +NS (IVPB) 250 ML IV SCH; +PEMBROLIZUMAB 200 MG in NS (IVPB) 50 ML IV SCH
[2022-07-26 10:06] LABS: BASOPHILS # (AUTO) 0.1 10^3/uL (0.0-0.1); BASOPHILS % (AUTO) 1 % (0-10); EOSINOPHILS # (AUTO) 1.8 10^3/uL (0.0-0.3); EOSINOPHILS % (AUTO) 17 % (0-10); HEMATOCRIT 40 % (35-52); HEMOGLOBIN 13.4 g/dL (11.5-16.0); LYMPHOCYTES # (AUTO) 2.8 10^3/uL (1.0-4.0); LYMPHOCYTES % (AUTO) 26 % (12-44); MEAN CORPUSCULAR HEMOGLOBIN 29 pg (25-34); MEAN CORPUSCULAR HGB CONC 34 g/dL (32-36); MEAN CORPUSCULAR VOLUME 86 fL (80-99); MONOCYTES # (AUTO) 0.5 10^3/uL (0.0-1.0); MONOCYTES % (AUTO) 4 % (0-12); NEUTROPHILS # (AUTO) 5.6 10^3/uL (1.8-7.8); NEUTROPHILS % (AUTO) 52 % (42-75); PLATELET COUNT 308 10^3/uL (130-400); WHITE BLOOD COUNT 10.9 10^3/uL (4.3-11.0)
[2022-07-26 10:32] LABS: ALBUMIN 3.8 GM/DL (3.2-4.5); BILIRUBIN,TOTAL 0.6 MG/DL (0.1-1.0); CALCIUM 9.3 MG/DL (8.5-10.1); CREATININE SERUM 0.75 MG/DL (0.60-1.30); POTASSIUM 4.2 MMOL/L (3.6-5.0); TOTAL PROTEIN 7.1 GM/DL (6.4-8.2)
== END 2022-07-31 | disposition home or self-care (01) ==
LOC: ONC 09:17
PROVIDERS: ATTEND Internal Medicine Hematology & Oncology
DX: Z51.11 Encounter for antineoplastic chemotherapy (principal); Z45.2 Encounter for adjustment and management of vascular access device; C43.9 Malignant melanoma of skin, unspecified
CPT/HCPCS: 36591; 80053; 85025; 96413

== ENCOUNTER 2022-08-03 11:41 | Emergency (ER) | payer MEDICAID ==
[~2022-08-03] VITALS: Ht 165.1 cm; Wt 106.0 kg
[~2022-08-03 11:41] MED LIST changes: -HEParin (CENTRAL IV FLUSH) 500 UNIT/5 ML SYR IV PRN; -NS (IVPB) 250 ML IV SCH; -PEMBROLIZUMAB 200 MG in NS (IVPB) 50 ML IV SCH
[2022-08-03] MEDS ORDERED: methylPREDNISolone 125 MG (Solu-MEDROL) VIAL IV STA (12:00)
--- NOTE | 2022-08-03 12:00 | ED Respiratory ---
General Chief Complaint: Respiratory Problems Stated Complaint: DIFFICULTY BREATHING Nursing Triage Note: PT AMB TO ED BY POV WITH C/O SOB. PT REPORTS SHE HAS HAD DIFFICULTY BREATHING SINCE STARTING KEYTRUDA IN NOV. REPORTS SHE HAS TALKED TO HER PCP ABOUT THIS AND HE PRESCRIBED HER AN ALBUTEROL INHALER. SOB WORSE WITH AMB. History of Present Illness Date Seen by Provider: Aug 03, 2022 Time Seen by Provider: 12:00 Initial Comments Patient reports that she has been having problems with shortness of breath since she started taking Keytruda. Has talked to her PCP about this in the past and was prescribed an inhaler. Has been taking that medication without much change in the shortness of breath. Denies recent sick contacts. Shortness of breath is worse with ambulation. Timing/Duration: getting worse, changing over time Prior Episodes/Possible Cause: frequent episodes Modifying Factors: Worse With Activity Associated Symptoms: No chest pain/soreness; cough; No fever/chills, No headache; shortness of breath Allergies and Home Medications Allergies Coded Allergies: No Known Drug Allergies (Unverified , 04/12/22) Patient Home Medication List Home Medication List Reviewed: Yes Albuterol Sulfate (Ventolin Hfa) 90 Mcg Hfa.aer.ad, 2 PUFF INH QID PRN for COUGH Prescribed by: Cee Zaman on 08/03/22 1629 Amoxicillin/Potassium Clav (Amox Tr-K Clv 875-125 mg Tab) 875 Mg-125 Mg Tablet, 1 EACH PO BID Prescribed by: Cee Zaman on 08/03/22 1629 Escitalopram Oxalate (Escitalopram Oxalate) 20 Mg Tablet, 20 MG PO DAILY, (Reported) Entered as Reported by: MIRANDA KOLB on 08/15/21 1342 Hydrocodone Bit/Acetaminophen (HYDROcodone/APAP 5 MG/325 MG TAB) 1 Tab Tab, 1 TAB PO Q8H PRN for PAIN-MODERATE (5-7) Prescribed by: SANDRA HENDERSON on 04/18/22 1220 Loratadine (Loratadine) 10 Mg Tablet, 10 MG PO DAILY, (Reported) Entered as Reported by: MEKHI ZAPATA on 01/13/20 0511 Norgestimate-Ethinyl Estradiol (Tri-Sprintec Tablet) 1 Each Tablet, 1 EACH PO DAILY, (Reported) Entered as Reported by: MIRANDA KOLB on 08/15/21 1342 Omeprazole (Omeprazole) 20 Mg Capsule.dr, 20 MG PO, (Reported) Entered as Reported by: MIRANDA KOLB on 11/07/21 1538 Prednisone (Prednisone) 20 Mg Tab, 60 MG PO BID Prescribed by: TRISTIAN NAJERA on 05/22/22 1406 Prednisone (Prednisone) 20 Mg Tab, 60 MG PO DAILY Prescribed by: Cee Zaman on 08/03/22 1629 Review of Systems Review of Systems Constitutional: No chills, No dizziness, No fever EENTM: no symptoms reported Respiratory: cough, dyspnea on exertion; No phlegm; short of breath; No wheezing Gastrointestinal: No abdominal pain, No diarrhea, No nausea, No vomiting Musculoskeletal: no symptoms reported Skin: No rash Past Iiywiyf-Finsuo-Fktlip Hx Patient Social History Tobacco Use?: No Use of E-Cig and/or Vaping dev: No Substance use?: No Alcohol Use?: No Pt feels they are or have been: No Immunizations Up To Date Tetanus Booster (TDap): Unknown PED Vaccines UTD: No Influenza Vaccine Up-to-Date: No; Not Current First/Initial COVID19 Vaccinat: MAY 2021 Second COVID19 Vaccination Christian: MAY 2021 Third COVID19 Vaccination Date: MAY 2021 Seasonal Allergies Seasonal Allergies: No Past Medical History Surgery/Hospitalization HX: STAGE 2 MELANOMA Surgeries: Yes (left foot tumor removed, PORT) Adenoidectomy, Tonsillectomy Respiratory: No Currently Using CPAP: No Currently Using BIPAP: No Cardiac: No Neurological: Yes Headaches /Migraines Last Menstrual Period: Aug 01, 2022 Reproductive Disorders: No Genitourinary: No Gastrointestinal: Yes Gastroesophageal Reflux, Diverticulosis Musculoskeletal: No Endocrine: No HEENT: No Cancer: Yes Melanoma What Type of Treatment Did You: Surgical Intervention Psychosocial: Yes Depression Integumentary: Yes (MELANOMA FOOT) Recent Skin Changes Blood Disorders: Yes (ANEMIA) Adverse Reaction/Blood Tranf: No Family Medical History Reviewed Nursing Family Hx Degenerative back FH: congestive heart failure (Grandfather father's side) FH: diverticulitis (Father) FH: ovarian cancer (Great grandmother maternal side) FH: type 2 diabetes (Mother and father) Hypertension (Grandfather father's side) No Pertinent Family Hx Physical Exam Vital Signs - First Documented 08/03/22 11:47 Temp 37.1 Pulse 90 Resp 18 B/P (MAP) 128/91 (103) Pulse Ox 95 O2 Delivery Room Air Capillary Refill : Less Than 3 Seconds Height: 5'5.00" Weight: 212lbs. 0.8oz. [id number]; 38.00 BMI Method:Stated General Appearance: WD/WN, no apparent distress Neck: non-tender, full range of motion, supple, normal inspection Respiratory: chest non-tender; No no accessory muscle use, No respiratory distress; decreased breath sounds (throughout), wheezing (expiratory wheezing throughout) Cardiovascular: regular rate, rhythm, no edema Gastrointestinal: normal bowel sounds, non tender Neurologic/Psychiatric: alert, normal mood/affect, oriented x 3 Skin: normal color, warm/dry Progress/Results/Core Measures Suspected Sepsis SIRS Temperature: Pulse: 90 Respiratory Rate: 18 Laboratory Tests 08/03/22 12:27: White Blood Count 8.4 Blood Pressure 128 /91 Mean: 103 Laboratory Tests 08/03/22 12:27: Creatinine 0.82, Platelet Count 307, Total Bilirubin 0.7 Results/Orders Lab Results Laboratory Tests Test 08/03/22 12:27 08/03/22 14:44 08/03/22 15:28 Range/Units White Blood Count 8.4 4.3-11.0 10^3/uL Red Blood Count 4.45 3.80-5.11 10^6/uL Hemoglobin 13.2 11.5-16.0 g/dL Hematocrit 39 35-52 % Mean Corpuscular Volume 87 80-99 fL Mean Corpuscular Hemoglobin 30 25-34 pg Mean Corpuscular Hemoglobin Concent 34 32-36 g/dL Red Cell Distribution Width 14.1 10.0-14.5 % Platelet Count 307 130-400 10^3/uL Mean Platelet Volume 9.8 9.0-12.2 fL Immature Granulocyte % (Auto) 0 % Neutrophils (%) (Auto) 52 42-75 % Lymphocytes (%) (Auto) 28 12-44 % Monocytes (%) (Auto) 4 0-12 % Eosinophils (%) (Auto) 15 H 0-10 % Basophils (%) (Auto) 1 0-10 % Neutrophils # (Auto) 4.3 1.8-7.8 10^3/uL Lymphocytes # (Auto) 2.4 1.0-4.0 10^3/uL Monocytes # (Auto) 0.4 0.0-1.0 10^3/uL Eosinophils # (Auto) 1.3 H 0.0-0.3 10^3/uL Basophils # (Auto) 0.1 0.0-0.1 10^3/uL Immature Granulocyte # (Auto) 0.0 0.0-0.1 10^3/uL Neutrophils % (Manual) 47 % Lymphocytes % (Manual) 34 % Monocytes % (Manual) 4 % Eosinophils % (Manual) 14 % Basophils % (Manual) 1 % Band Neutrophils 0 % Blood Morphology Comment NORMAL D-Dimer 1.31 H 0.00-0.49 UG/ML Sodium Level 136 135-145 MMOL/L Potassium Level 4.1 3.6-5.0 MMOL/L Chloride Level 106 98-107 MMOL/L Carbon Dioxide Level 19 L 21-32 MMOL/L Anion Gap 11 5-14 MMOL/L Blood Urea Nitrogen 10 7-18 MG/DL Creatinine 0.82 0.60-1.30 MG/DL Estimat Glomerular Filtration Rate 101 BUN/Creatinine Ratio 12 Glucose Level 90 70-105 MG/DL Calcium Level 9.1 8.5-10.1 MG/DL Corrected Calcium 9.3 8.5-10.1 MG/DL Total Bilirubin 0.7 0.1-1.0 MG/DL Aspartate Amino Transf (AST/SGOT) 24 5-34 U/L Alanine Aminotransferase (ALT/SGPT) 26 0-55 U/L Alkaline Phosphatase 107 40-136 U/L C-Reactive Protein High Sensitivity 1.52 H 0.00-0.50 MG/DL B-Type Natriuretic Peptide < 10.0 <100.0 PG/ML Total Protein 7.2 6.4-8.2 GM/DL Albumin 3.8 3.2-4.5 GM/DL Blood Gas Puncture Site RIGHT RADIAL Blood Gas Patient Temperature 37.4 Arterial Blood pH 7.37 7.37-7.43 Arterial Blood Partial Pressure CO2 38 35-45 MMHG Arterial Blood Partial Pressure O2 70 L 79-93 MMHG Arterial Blood HCO3 21 L 23-27 MMOL/L Arterial Blood Total CO2 22.5 21.0-31.0 MMOL/L Arterial Blood Oxygen Saturation 95 94-100 % Arterial Blood Base Excess -2.9 L -2.5-2.5 MMOL/L Javan Test POSITIVE Blood Gas Ventilator Setting NO Blood Gas Inspired Oxygen N/A Influenza Type A (RT-PCR) Not Detected Not Detecte Influenza Type B (RT-PCR) Not Detected Not Detecte SARS-CoV-2 RNA (RT-PCR) Not Detected Not Detecte My Orders Orders - CEE ZAMAN APRN Cbc With Automated Diff (08/03/22 12:00) Comprehensive Metabolic Panel (08/03/22 12:00) Bnp Wheeler (08/03/22 12:00) Hs C Reactive Protein (08/03/22 12:00) Fibrin Degradation Products (08/03/22 12:00) Ekg Tracing (08/03/22 12:00) O2 (08/03/22 12:00) Ed Iv/Invasive Line Start (08/03/22 12:00) Monitor-Rhythm Ecg Trace Only (08/03/22 12:00) Chest 1 View, Ap/Pa Only (08/03/22 12:00) Methylprednisolone Sod Succ (Solu-Medrol (08/03/22 12:00) Manual Differential (08/03/22 12:27) Ct Angio Chest W (08/03/22 13:29) Iohexol Injection (Omnipaque 350 Mg/Ml 1 (08/03/22 14:00) Ns (Ivpb) (Sodium Chloride 0.9% Ivpb Bag (08/03/22 14:00) Sodium Chloride Flush (Catheter Flush Sy (08/03/22 14:00) Arterial Blood Gas (08/03/22 14:45) Arterial Blood Draw - Obtain (08/03/22 ) Covid 19 Inhouse Test (08/03/22 15:24) Influenza A And B By Pcr (08/03/22 15:24) Isolation Central Supply Req (08/03/22 15:24) Ceftriaxone (Rocephin) (08/03/22 15:45) Ns (Ivpb) (Sodium Chloride 0.9% Ivpb Bag (08/03/22 15:41) Medications Given in ED Current Medications Medications Dose Ordered Sig/Gasper Route Start Time Stop Time Status Last Admin Dose Admin Ceftriaxone Sodium 2000 mg/ Sodium Chloride 50 ml @ 100 mls/hr ONCE ONCE IV 08/03/22 15:45 08/03/22 16:14 DC 08/03/22 15:46 100 MLS/HR Iohexol 100 ml ONCE ONCE IV 08/03/22 14:00 08/03/22 14:02 DC 08/03/22 14:49 88 ML Sodium Chloride 10 ml NEEDED PRN IV 08/03/22 14:00 08/03/22 16:44 DC 08/03/22 14:50 10 ML Sodium Chloride 100 ml ONCE ONCE IV 08/03/22 14:00 08/03/22 14:02 DC 08/03/22 14:50 70 ML Vital Signs/I&O 08/03/22 08/03/22 08/03/22 11:47 12:05 16:44 Temp 37.1 37.1 Pulse 90 83 Resp 18 18 B/P (MAP) 128/91 (103) 127/81 Pulse Ox 95 91 O2 Delivery Room Air Room Air Room Air Capillary Refill : Less Than 3 Seconds Blood Pressure Mean: 103 Progress Note : Progress Note Patient with ongoing shortness of breath since starting medication. Will workup and determine further treatment from there. 1528: Discussed with patient likely admission and she declined at this time despite requiring oxygen to maintain her saturations about 90%. Long discussion was had with patient in regards to this and consequences of going home. She was adament about not staying in the hospital. She is aware that her symptoms may get much worse and could lead to . She still requested to not be admitted. Will get COVID test and treat with IV antibiotics then likely discharge home once COVID results are done. 1627: IV antibiotics were done and she still refused to stay. AMA paperwork was signed and patient left the department. She is aware that symptoms could get worse and she could . ECG Initial ECG Impression Date: Aug 03, 2022 Initial ECG Impression Time: 12:11 Initial ECG Rate: 92 Initial ECG Rhythm: Normal Sinus Initial ECG Intervals: Normal Initial ECG Impression: Normal Departure Impression Primary Impression: Pneumonia Qualified Codes: J18.9 - Pneumonia, unspecified organism Additional Impression: Hypoxia Disposition: 07 AGAINST MEDICAL ADVICE Condition: Against Medical Advice Departure-Patient Inst. Decision time for Depature: 16:27 Referrals: LEONARDO HERRERA MD (PCP/Family) Primary Care Physician Patient Instructions: Pneumonia, Adult (DC) Add. Discharge Instructions: 1. You are leaving the hospital against medical advice. 2. Medications as directed. 3. Return here if worse or concerns. All discharge instructions reviewed with patient and/or family. Voiced u nderstanding. Scripts Albuterol Sulfate (Ventolin Hfa) 90 Mcg Hfa.aer.ad 2 PUFF INH QID PRN for COUGH, #1 UNIT 1 PUFF = 90 MCG Prov: CEE ZAMAN APRN 08/03/22 Amoxicillin/Potassium Clav (Amox Tr-K Clv 875-125 mg Tab) 875 Mg-125 Mg Tablet 1 EACH PO BID for 7 Days, #14 TAB Prov: CEE ZAMAN APRN 08/03/22 Prednisone (Prednisone) 20 Mg Tab 60 MG PO DAILY for 5 Days, #15 TAB Prov: CEE ZAMAN APRN 08/03/22 CEE ZAMAN APRN Aug 03, 2022 12:00
[2022-08-03 12:40] LABS: BASOPHILS # (AUTO) 0.1 10^3/uL (0.0-0.1); BASOPHILS % (AUTO) 1 % (0-10); EOSINOPHILS # (AUTO) 1.3 10^3/uL (0.0-0.3); EOSINOPHILS % (AUTO) 15 % (0-10); HEMATOCRIT 39 % (35-52); HEMOGLOBIN 13.2 g/dL (11.5-16.0); LYMPHOCYTES # (AUTO) 2.4 10^3/uL (1.0-4.0); LYMPHOCYTES % (AUTO) 28 % (12-44); MEAN CORPUSCULAR HEMOGLOBIN 30 pg (25-34); MEAN CORPUSCULAR HGB CONC 34 g/dL (32-36); MEAN CORPUSCULAR VOLUME 87 fL (80-99); MEAN PLATELET VOLUME 9.8 fL (9.0-12.2); MONOCYTES # (AUTO) 0.4 10^3/uL (0.0-1.0); MONOCYTES % (AUTO) 4 % (0-12); NEUTROPHILS # (AUTO) 4.3 10^3/uL (1.8-7.8); NEUTROPHILS % (AUTO) 52 % (42-75); PLATELET COUNT 307 10^3/uL (130-400); WHITE BLOOD COUNT 8.4 10^3/uL (4.3-11.0)
[2022-08-03 12:52] LABS: ALBUMIN 3.8 GM/DL (3.2-4.5); POTASSIUM 4.1 MMOL/L (3.6-5.0)
[2022-08-03 12:54] LABS: CALCIUM 9.1 MG/DL (8.5-10.1)
[2022-08-03 12:55] LABS: TOTAL PROTEIN 7.2 GM/DL (6.4-8.2)
[2022-08-03 12:57] LABS: BILIRUBIN,TOTAL 0.7 MG/DL (0.1-1.0)
[2022-08-03 12:59] LABS: CREATININE SERUM 0.82 MG/DL (0.60-1.30)
--- NOTE | 2022-08-03 13:09 | Diagnostic Imaging Report ---
INDICATION: Shortness of breath Frontal chest obtained at 1241 p.m. compared to 05/22/2022 Heart and mediastinal silhouette are normal in appearance. Port-A-Cath is unchanged. There is no pneumothorax or pleural fluid. There is ill-defined interstitial infiltrate in the perihilar regions, right greater than left. IMPRESSION: Ill-defined interstitial infiltrate in perihilar regions, right greater than left. Findings may represent atypical pneumonia. There is no pneumothorax or pleural fluid. Follow-up is recommended. Dictated by: Dictated on workstation # [id number]
[2022-08-03 13:28] LABS: BAND NEUTROPHILS 0 %; BASOPHILS % (MANUAL) 1 %; EOSINOPHILS % (MANUAL) 14 %; LYMPHOCYTES % (MANUAL) 34 %; MONOCYTES % (MANUAL) 4 %; NEUTROPHILS % (MANUAL) 47 %; RBC MORPH NORMAL
[2022-08-03] MEDS ORDERED: NS 100 ML (IVPB) BAG IV ONE (14:00)
[2022-08-03] MEDS ORDERED: IOHEXOL 350 MG/ML 100 ML (OMNIPAQUE 350) VIAL IV ONE (14:00)
[2022-08-03] MEDS ORDERED: CATHETER FLUSH 10 ML SYR IV PRN (14:00)
[2022-08-03 14:51] LABS: ABG BASE EXCESS -2.9 MMOL/L (-2.5-2.5); ABG OXYGEN SATURATION 95 % (94-100); ABG PCO2 38 MMHG (35-45); ABG PH 7.37 (7.37-7.43); ABG PO2 70 MMHG (79-93); ABG TCO2 22.5 MMOL/L (21.0-31.0)
[2022-08-03 14:52] LABS: ALLENS TEST POSITIVE; PATIENT TEMP 37.4; VENTILATOR NO
--- NOTE | 2022-08-03 15:09 | Diagnostic Imaging Report ---
PROCEDURE: CT angiography of the chest with contrast. TECHNIQUE: Multiple contiguous axial images were obtained through the chest after uneventful bolus administration of intravenous contrast. 3D reconstructed CTA MIP acquisitions were also performed. Auto Exposure Controls were utilized during the CT exam to meet ALARA standards for radiation dose reduction. INDICATION: Elevated D-dimer, patient with dyspnea. FINDINGS: There is good opacification of the pulmonary arteries without intraluminal filling defect. There are mildly prominent bilateral hilar lymph nodes. There is extensive diffuse ground-glass density throughout the lungs with an upper lobe predominance. No lobar consolidation is identified. There is no significant pleural or pericardial fluid. Upper abdominal sections reveal low density in the liver. IMPRESSION: No CTA evidence of pulmonary embolism or other great vessel abnormality in the thorax. Diffuse ground-glass densities in both lungs may represent pneumonitis possibly on an infectious basis, and atypical pneumonia is not excluded. Other pneumonitis could be on the basis of toxic exposure or drug reaction, and clinical correlation is suggested. Mildly prominent bilateral hilar lymph nodes may be reactive, although follow-up would be of use. Dictated by: Dictated on workstation # [id number]
[2022-08-03] MEDS ORDERED: NS (IVPB) 50 ML ONE (15:41)
[2022-08-03] MEDS ORDERED: cefTRIAXone 2,000 MG in NS (IVPB) 50 ML IV ONE (15:45)
[2022-08-03] MEDS ORDERED: PRD20T PO (16:29)
[2022-08-03] MEDS ORDERED: ALBU8.5H6 INH (16:29)
[2022-08-03] MEDS ORDERED: AMOX1TAB12 PO (16:29)
[2022-08-03 16:44] VITALS: BP 127/81
== END 2022-08-03 16:44 | disposition left against medical advice (07) ==
LOC: EDUNIT# 11:41 → ER 11:43
DX: J18.9 Pneumonia, unspecified organism (principal); R09.02 Hypoxemia; Z28.311 Partially vaccinated for COVID-19; Z20.822 Contact with and (suspected) exposure to COVID-19
CPT/HCPCS: 36415; 36600; 71045; 71275; 80053; 82805; 83880; 85007; 85027; 85379; 86141; 87636; 93005; 93041